=== PATIENT | female | born 1965 | race Caucasian/White ===

== ENCOUNTER → 2016-11-18 | Outpatient (CLI) | payer OTHER, BC ==
[~2016-11-18] MED LIST: BIOFTAB24; FEXO1TAB45 PO; LORA-741 PO; MEDR150I; NICO21DI12 TD; OMEG10007 PO; SIMV20TA2 PO; VENL75CA73 PO
--- NOTE | 2016-11-18 15:01 | DIAGNOSTIC IMAGING REPORT ---
LEFT ELBOW 3 VIEWS HISTORY: Fall with left elbow pain. COMPARISON: None. FINDINGS: There is no fracture or dislocation. Soft tissues are unremarkable. No radiopaque foreign bodies. No elbow effusion. 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 IMPRESSION: No fractures. Electronically signed by: Derik Guzman M.D. 11/18/2016 3:00 PM Dictated Date/Time: 11/18/2016 2:59 PM
== END | disposition home or self-care (01) ==
LOC: C.RAD1850 14:37
PROVIDERS: ATTEND Nurse Practitioner Adult Health
DX: M25.522 Pain in left elbow (principal); W19.XXXA Unspecified fall, initial encounter

== ENCOUNTER → 2016-12-15 | Outpatient (CLI) | payer BC | END | disposition home or self-care (01) | LOC: C.LABSPEC 12:57 | PROVIDERS: ATTEND Internal Medicine | DX: Z12.11 Encounter for screening for malignant neoplasm of colon (principal) ==

== ENCOUNTER → 2017-05-06 | Outpatient (CLI) | payer BC | END | disposition home or self-care (01) | LOC: C.PAPS 14:30 | PROVIDERS: ATTEND Internal Medicine | DX: Z01.419 Encounter for gynecological examination (general) (routine) without abnormal findings (principal) ==

== ENCOUNTER → 2017-05-06 | Outpatient (CLI) | payer BC ==
[2017-05-06 15:04] LABS: BASO % 0.5 %; BASO ABS # 0.03 K/uL (0-0.2); COMPLETE YES; EOS % 1.7 %; HEMATOCRIT 42.5 % (37-47); IG% 0.2 %; LYMPH % 32.2 %; LYMPH ABS # 2.03 K/uL (1.2-3.4); MEAN CELL VOLUME 91.6 fL (80-100); MEAN CORPUSCULAR HEMOGLOBIN 31.3 pg (25-34); MEAN CORPUSCULAR HGB CONC 34.1 g/dl (32-36); MEAN PLATELET VOLUME 9.5 fL (7.4-10.4); MONO % 7.4 %; PLATELET COUNT 273 K/uL (130-400); RED BLOOD COUNT 4.64 M/uL (4.2-5.4); WHITE BLOOD COUNT 6.31 K/uL (4.8-10.8)
[2017-05-06 15:20] LABS: ALT/SGPT 26 U/L (12-78); BLOOD UREA NITROGEN 17 mg/dl (7-18); BUN/CREATININE RATIO 23.4 (10-20); CALCIUM 9.4 mg/dl (8.5-10.1); CARBON DIOXIDE 26 mmol/L (21-32); CHLORIDE 102 mmol/L (98-107); CHOLESTEROL 233 mg/dl (0-200); CREATININE 0.71 mg/dl (0.60-1.20); GLUCOSE 93 mg/dl (70-99); POTASSIUM 3.7 mmol/L (3.5-5.1); SODIUM 136 mmol/L (136-145); TRIGLYCERIDES 90 mg/dl (0-150); VERY LOW DENSITY LIPOPROT CALC 18 mg/dl
[2017-05-06 15:25] LABS: ALB/GLOB RATIO 1.2 (0.9-2); ALKALINE PHOSPHATASE 70 U/L (45-117); AST/SGOT 15 U/L (15-37); CHOLESTEROL/HDL RATIO 4.9; HDL CHOLESTEROL 48 mg/dl; RHEUMATOID FACTOR < 10.0 U/mL (0-15)
[2017-05-06 16:48] LABS: LYME DISEASE AB IGM NEG (NEG)
[2017-05-06 16:51] LABS: LYME DISEASE AB IGG NEG (NEG)
[2017-05-07 05:43] LABS: ESTIMATED AVERAGE GLUCOSE 120 mg/dl; HA1C FLAG Normal (Normal)
[2017-05-11 08:33] LABS: ANA TITER 1:40 TITER (<1:40)
== END | disposition home or self-care (01) ==
LOC: C.LABSPEC 14:22
PROVIDERS: ATTEND Internal Medicine
DX: R73.9 Hyperglycemia, unspecified (principal); E78.5 Hyperlipidemia, unspecified; M25.50 Pain in unspecified joint

== ENCOUNTER → 2017-05-13 | Outpatient (CLI) | payer BC ==
[2017-05-16 15:28] LABS: ANTI-SS-A <1.0 NEG AI (<1.0 NEG); ANTI-SS-B <1.0 NEG AI (<1.0 NEG); Sm Antibody <1.0 NEG AI (<1.0 NEG)
== END | disposition home or self-care (01) ==
LOC: C.PAPS 16:51
PROVIDERS: ATTEND Internal Medicine
DX: M25.50 Pain in unspecified joint (principal)

== ENCOUNTER → 2017-05-17 | Outpatient (CLI) | payer BC ==
--- NOTE | 2017-05-18 07:39 | MAMMOGRAPHY REPORT ---
BILATERAL DIGITAL SCREENING MAMMOGRAM TOMOSYNTHESIS WITH CAD: 05/17/2017 CLINICAL HISTORY: Routine screening. Patient has no complaints. TECHNIQUE: Breast tomosynthesis in addition to standard 2D mammography was performed. Current study was also evaluated with a Computer Aided Detection (CAD) system. COMPARISON: Comparison is made to exams dated: 05/12/2016 mammogram, 05/12/2015 mammogram, 09/14/2013 isaac mogram, 09/13/2012 mammogram, 09/10/2011 mammogram, and 09/04/2010 mammogram - [facility] nter. BREAST COMPOSITION: There are scattered areas of fibroglandular density in both breasts. FINDINGS: A small 4 mm lobulated mass in the lower inner quadrant of the left breast has decreased in size compared to more remote mammograms, confirming benignity. No suspicious mass, architectural di stortion or cluster of microcalcifications is seen. IMPRESSION: ACR BI-RADS CATEGORY 1: NEGATIVE There is no mammographic evidence of malignancy. A 1 year screening mammogram is recommended. The pa tient will receive written notification of the results. Approximately 10% of breast cancers are not detected with mammography. A negative mammographic report should not delay biopsy if a clinically suggestive mass is present. Mayuri Garcia M.D. ay/:05/17/2017 16:41:05 [employer]: Jen CARTER)(M), [facility] letter sent: Normal 1/2 BI-RADS Code: ACR BI-RADS Category 1: Negative
== END | disposition home or self-care (01) ==
LOC: C.MAMM 16:07
PROVIDERS: ATTEND Internal Medicine
DX: Z12.31 Encounter for screening mammogram for malignant neoplasm of breast (principal)

== ENCOUNTER → 2017-07-09 | Outpatient (CLI) | payer BC | END | disposition home or self-care (01) | LOC: C.LABSPEC 12:59 | PROVIDERS: ATTEND Internal Medicine | DX: Z12.11 Encounter for screening for malignant neoplasm of colon (principal) ==

== ENCOUNTER → 2017-12-16 | Outpatient (CLI) | payer OTHER ==
[2017-12-16 18:11] LABS: BASO % 0.4 %; BASO ABS # 0.03 K/uL (0-0.2); EOS % 1.3 %; IG# 0.02 K/uL (0.00-0.02); LYMPH % 27.4 %; LYMPH ABS # 2.06 K/uL (1.2-3.4); MEAN CELL VOLUME 91.7 fL (80-100); MEAN CORPUSCULAR HEMOGLOBIN 32.1 pg (25-34); MEAN PLATELET VOLUME 9.4 fL (7.4-10.4); MONO ABS # 0.68 K/uL (0.11-0.59); NEUT % 61.6 %; NEUT ABS # 4.64 K/uL (1.4-6.5); PLATELET COUNT 266 K/uL (130-400); RED CELL DISTRIBUTION WIDTH CV 14.1 % (11.5-14.5); RED CELL DISTRIBUTION WIDTH SD 47.8 fL (36.4-46.3); WHITE BLOOD COUNT 7.53 K/uL (4.8-10.8)
[2017-12-16 18:37] LABS: ALBUMIN 3.9 gm/dl (3.4-5.0); ALKALINE PHOSPHATASE 189 U/L (45-117); ALT/SGPT 19 U/L (12-78); AST/SGOT 21 U/L (15-37); BLOOD UREA NITROGEN 37 mg/dl (7-18); CALCIUM 9.4 mg/dl (8.5-10.1); CARBON DIOXIDE 41 mmol/L (21-32); CREATININE 1.29 mg/dl (0.60-1.20); GLUCOSE 105 mg/dl (70-99); SODIUM 140 mmol/L (136-145); TOTAL PROTEIN 7.7 gm/dl (6.4-8.2)
[2017-12-17 07:01] LABS: HEMOGLOBIN A1C 5.9 % (4.5-5.6)
== END | disposition home or self-care (01) ==
LOC: C.LABSPEC 17:24
PROVIDERS: ATTEND Internal Medicine
DX: R73.9 Hyperglycemia, unspecified (principal); E78.5 Hyperlipidemia, unspecified; R53.83 Other fatigue; E66.09 Other obesity due to excess calories

== ENCOUNTER → 2018-02-20 | Outpatient (CLI) | payer OTHER ==
[~2018-02-20] MED LIST changes: +CALC-393 PO; +CLB/200 PO; +DIPH-437 PO; +EYED OPB; +FLUO20CA35 PO; +FLUT0.15; -MEDR150I; +MEDR150I INJ; +NICO1KIT EX; -NICO21DI12 TD; +PRLSR20 PO; +allergy injections INJ
== END | disposition home or self-care (01) ==
LOC: C.LABSPEC 17:42
PROVIDERS: ATTEND Internal Medicine
DX: N39.0 Urinary tract infection, site not specified (principal)

== ENCOUNTER 2018-03-07 11:43 | Inpatient (IN) | payer OTHER ==
[2018-02-16 14:50] VITALS: BMI 42.0
--- NOTE | 2018-02-16 15:29 | PAT Medication Instructions ---
Service Date Feb 16, 2018. Current Home Medication List Acetaminophen/Diphenhydramine (Tylenol Pm), 1 TAB PO HS Bioflavonoid Products (Vitamin C Plus 500 mg), BID Calcium Carbonate (Calcium), 1 TAB PO BID Celecoxib (CeleBREX), 200 MG PO QAM Eye Drops (Eye Drops), 1-2 DROPS OPB QD Fexofenadine Hcl (Adriane), 60 MG PO BID Fish Oil ([place]-3), 1 CAP PO BID Fluoxetine (Prozac), 20 MG PO QAM Fluticasone Propionate (Nasal) (Flonase Allergy Relief), 2 SPRAYS NA QD PRN for Nasal Congestion Lorazepam (Ativan), 0.5 MG PO Q6H PRN for Anxiety/Agitation Medroxyprogesterone Acetate (C (Depo-Provera Contraceptiv), 1 DOSE INJ Q3MO Nicotine (Nicotine Transdermal Syst), 1 PATCH EX Q24H Omeprazole (Prilosec), 20 MG PO QPM Simvastatin (Zocor), 1 TAB PO QPM Venlafaxine Hcl (Venlafaxine Extended Rel), 1 CAP PO DAILY [allergy injections], 1 DOSE INJ [id number] Medication Instructions For Your Scheduled Surgery -Continue as directed: Medroxyprogesterone Acetate (C (Depo-Provera Contraceptiv), 1 DOSE INJ Q3MO [allergy injections], 1 DOSE INJ [id number] Nicotine (Nicotine Transdermal Syst), 1 PATCH EX Q24H - Hold the following medications 2 weeks prior to surgery: Fish Oil ([place]-3), 1 CAP PO BID - Hold the following medications 7 days prior to surgery per your surgeon's instructions: Celecoxib (CeleBREX), 200 MG PO QAM - Hold the following medications the morning of surgery: Bioflavonoid Products (Vitamin C Plus 500 mg), BID Calcium Carbonate (Calcium), 1 TAB PO BID Fexofenadine Hcl (Adriane), 60 MG PO BID - Take the following medications the morning of surgery with a sip of water: Eye Drops (Eye Drops), 1-2 DROPS OPB QD Fluoxetine (Prozac), 20 MG PO QAM Fluticasone Propionate (Nasal) (Flonase Allergy Relief), 2 SPRAYS NA QD PRN for Nasal Congestion (if needed) Lorazepam (Ativan), 0.5 MG PO Q6H PRN for Anxiety/Agitation (if needed) Venlafaxine Hcl (Venlafaxine Extended Rel), 1 CAP PO DAILY - Take the following medications as scheduled the night before surgery: Acetaminophen/Diphenhydramine (Tylenol Pm), 1 TAB PO HS Bioflavonoid Products (Vitamin C Plus 500 mg), BID Calcium Carbonate (Calcium), 1 TAB PO BID Eye Drops (Eye Drops), 1-2 DROPS OPB QD Fexofenadine Hcl (Adriane), 60 MG PO BID Fluticasone Propionate (Nasal) (Flonase Allergy Relief), 2 SPRAYS NA QD PRN for Nasal Congestion (if needed) Lorazepam (Ativan), 0.5 MG PO Q6H PRN for Anxiety/Agitation (if needed) Omeprazole (Prilosec), 20 MG PO QPM Simvastatin (Zocor), 1 TAB PO QPM If you have any questions please call us at [phone] or [phone] or [phone]
--- NOTE | 2018-02-16 16:14 | DIAGNOSTIC IMAGING REPORT ---
CHEST 2 VIEWS ROUTINE CLINICAL HISTORY: Preoperative evaluation. COMPARISON STUDY: Chest radiograph April 24, 2017. FINDINGS: Lung volumes are normal. No pneumothorax or pleural effusion is noted. There are several old right rib fractures. Pulmonary vascularity is normal. Cardiac size is normal. Mediastinal contours are normal. IMPRESSION: No acute cardiopulmonary findings. Electronically signed by: Tigre Rogers M.D. 02/16/2018 4:13 PM Dictated Date/Time: 02/16/2018 4:13 PM
[2018-02-16 16:17] LABS: BASO % 0.3 %; BASO ABS # 0.02 K/uL (0-0.2); EOS % 1.8 %; EOS ABS # 0.13 K/uL (0-0.5); HEMATOCRIT 41.5 % (37-47); HEMOGLOBIN 14.5 g/dL (12.0-16.0); IG# 0.01 K/uL (0.00-0.02); LYMPH % 31.3 %; LYMPH ABS # 2.21 K/uL (1.2-3.4); MEAN CELL VOLUME 89.4 fL (80-100); MEAN CORPUSCULAR HEMOGLOBIN 31.3 pg (25-34); MEAN CORPUSCULAR HGB CONC 34.9 g/dl (32-36); MEAN PLATELET VOLUME 8.9 fL (7.4-10.4); MONO % 7.4 %; MONO ABS # 0.52 K/uL (0.11-0.59); NEUT % 59.1 %; NEUT ABS # 4.18 K/uL (1.4-6.5); PLATELET COUNT 255 K/uL (130-400); RED CELL DISTRIBUTION WIDTH CV 13.9 % (11.5-14.5); RED CELL DISTRIBUTION WIDTH SD 45.2 fL (36.4-46.3); WHITE BLOOD COUNT 7.07 K/uL (4.8-10.8)
[2018-02-16 16:52] LABS: CALCIUM 8.9 mg/dl (8.5-10.1); CREATININE 0.74 mg/dl (0.60-1.20); POTASSIUM 4.1 mmol/L (3.5-5.1)
[~2018-03-07] VITALS: Ht 162.6 cm; Wt 115.0 kg
[2018-03-07] VITALS (8 sets, daily range): BP systolic 118–155; BP diastolic 75–107; PULSE 69–94; TEMP 35.9–37; O2SAT 94–100; Ht 162.6 cm; Wt 115.0 kg
[~2018-03-07 11:43] MED LIST changes: +ACETAMINOPHEN 500 MG TAB PO SCH; +CEFAZOLIN 2000MG IV PUSH 15 ML IV SCH; +CeleBREX 200 MG CAP PO SCH; +GABAPENTIN 900 MG PO SCH; +LACTATED RINGER'S 1000ML 1,000 ML IV SCH
[2018-03-07] MEDS ORDERED: NICO14DI31 TD (12:56)
--- NOTE | 2018-03-07 14:06 | History & Physical Bridge Note ---
H&P Re-Evaluation Bridge Note: I have examined the patient, reviewed the History & Physical and in the interval since the performance of the History & Physical I have noted the following changes of clinical significance: No changes noted
--- NOTE | 2018-03-07 14:09 | History and Physical ---
History & Physical Date March 07, 2018. Chief Complaint Back and leg pain History of Present Illness The patient is a 52 year old female with complaints of back and leg pain Additional History Hepatic Disease: No Endocrine Disorder: No Kidney Disease: No Hypertension: No Heart Disease: No Bleeding Tendencies: No Infectious Diseases: No Allergies Coded Allergies: Dust Mite Extract (Verified Allergy, Intermediate, dust & dirt = coughing and sneezing, 03/07/18) No Known Drug Allergy (Unverified Allergy, Unknown, ,, 03/07/18) . Home Medications Scheduled Acetaminophen/Diphenhydramine (Tylenol Pm), 1 TAB PO HS Bioflavonoid Products (Vitamin C Plus 500 mg), BID Calcium Carbonate (Calcium), 1 TAB PO BID Celecoxib (CeleBREX), 200 MG PO QAM Eye Drops (Eye Drops), 1-2 DROPS OPB QD Fluoxetine (Prozac), 20 MG PO QAM Medroxyprogesterone Acetate (C (Depo-Provera Contraceptiv), 1 DOSE INJ Q3MO Nicotine (Nicotine Transdermal Syst), 1 PATCH EX Q24H Nicotine (Nicoderm Cq 14MG Patch), 1 PATCH TD DAILY Omeprazole (Prilosec), 20 MG PO QPM Simvastatin (Zocor), 1 TAB PO QPM [allergy injections], 1 DOSE INJ [id number] Scheduled PRN Fluticasone Propionate (Nasal) (Flonase Allergy Relief), 2 SPRAYS NA QD PRN for Nasal Congestion Physical Examination Skin: warm/dry, no rash Eyes: normal inspection, EOMI, sclerae normal ENT: normal ENT inspection, pharynx normal Head: normocephalic, atraumatic Neck: supple, no adenopathy, trachea midline Respiratory/Chest: lungs clear, normal breath sounds, no respiratory distress Cardiovascular: regular rate, rhythm, no edema, no murmur Abdomen / GI: normal bowel sounds, non tender Back: normal inspection Extremities: normal inspection, normal range of motion Neurologic/Psych: no motor/sensory deficits, alert, normal reflexes, oriented x 3 Diagnosis Lumbar spinal stenosis with spondylolisthesis and neurogenic claudication Plan of Treatment TLIF L4-5
[2018-03-07] MEDS ORDERED: BUPIVACAINE/EPINEPHRINE 0.5% MPF 1:200,000 30 ML VIAL ONE (14:25)
[2018-03-07] MEDS ORDERED: BACITRACIN 50000 UNIT VIAL ONE (14:25)
[2018-03-07] MEDS ORDERED: HYDROmorphone INJ 2 MG/ML SYR/VIAL ONE (14:29)
[2018-03-07] MEDS ORDERED: FENTANYL CITRATE INJ 50 MCG/1 ML 2 ML VIAL ONE (14:29)
[2018-03-07] MEDS ORDERED: MIDAZOLAM HCL 1 MG/ML 2ML VIAL ONE (14:29)
[2018-03-07] MEDS ORDERED: FLUMAZENIL 0.1 MG/1 ML 10 ML VIAL IV PRN (15:15)
[2018-03-07] MEDS ORDERED: ATROPINE SULFATE 0.1 MG/ML 5ML SYR IV PRN (15:15)
[2018-03-07] MEDS ORDERED: LABETALOL HCL IV 5 MG/ML 20ML IV PRN (15:15)
[2018-03-07] MEDS ORDERED: PROMETHAZINE HCL INJ 12.5 MG in SODIUM CHLORIDE 0.9% 50ML 50 ML IV PRN ×2 (15:15→16:45)
[2018-03-07] MEDS ORDERED: HYDROmorphone INJ 1 MG/ML SYR IV PRN (15:15)
[2018-03-07] MEDS ORDERED: ONDANSETRON INJ 2 MG/ML 2 ML VIAL IV PRN ×2 (15:15→16:45)
[2018-03-07] MEDS ORDERED: EpHEDrine SULFATE INJ 50 MG/ML AMP IV PRN (15:15)
[2018-03-07] MEDS ORDERED: NALOXONE HCL 0.4 MG/1 ML VIAL/CARP IV PRN ×3 (15:15→16:45)
[2018-03-07] MEDS ORDERED: LARYING-O-JET KIT (LTA) ONE (15:20)
[2018-03-07] MEDS ORDERED: ONDANSETRON INJ 2 MG/ML 2 ML VIAL ONE (15:20)
[2018-03-07] MEDS ORDERED: PROPOFOL IV EMULSION 10 MG/ML 20 ML VIAL ONE (15:20)
[2018-03-07] MEDS ORDERED: GLYCOPYRROLATE INJ 0.2 MG/ML VIAL ONE (15:20)
[2018-03-07] MEDS ORDERED: EpHEDrine SULFATE 50MG/5ML SYR ONE (15:20)
[2018-03-07] MEDS ORDERED: NEOSTIGMINE METHYLSULFATE 1 MG/ML 10ML VIAL ONE (15:20)
[2018-03-07] MEDS ORDERED: DEXAMETHASONE SOD INJ 4 MG/ML VIAL ONE (15:20)
[2018-03-07] MEDS ORDERED: LIDOCAINE HCL 2% 2 ML VIAL (20MG/ML) ONE (15:20)
[2018-03-07] MEDS ORDERED: ROCURONIUM BROMIDE 10 MG/ML 5 ML VIAL ONE (15:20)
[2018-03-07] MEDS ORDERED: PHENYLEPHRINE 100MCG/ML 5ML SYR ONE (15:20)
[2018-03-07] MEDS ORDERED: FLOSEAL HEMOSTATIC MATRIX 10ML TOP ONE (16:22)
[2018-03-07] MEDS ORDERED: SODIUM CHLORIDE 0.9% 1000ML 1,000 ML IV SCH (16:31)
--- NOTE | 2018-03-07 16:31 | [facility] Operative Report ---
Operative Report Operative Date March 07, 2018. Pre-Operative Diagnosis Lumbar spinal stenosis with spondylolisthesis and neurogenic claudication Post-Operative Diagnosis Lumbar spinal stenosis with spondylolisthesis and neurogenic claudication Procedure(s) Performed 1. Lumbar decompression medial facetectomies foraminotomies L3-4 L4-5. #2 posterior spinal fusion L4-5. #3 placement posterior instrumentation L4-5. #4 interbody fusion L4-5. #5 placement of titanium 12 x 22 mm cage at L4-5. #6 placement of locally harvested morselized autograft in the posterior lateral gutters. #7 placement InFUSE collagen sponge combined with master graft in the posterior lateral gutters and ostial amp in the interbody space. Surgeon Dr. Candelario Gonzalez Viscera Washer Surgeon(s) Janet Treviño PA-C Estimated Blood Loss 180ml Findings Severe spinal stenosis with facet cyst and spondylolisthesis Specimens None per surgeon Anesthesia Type General Description of Procedure Patient was met with preoperatively case discussed all questions addressed. After informed consent obtained patient was taken to the operative suite underwent intubation and placed in the prone position on the Mariano table on top of the Amor frame. All bony prominences well-padded eyes inspected to ensure no external pressure placed upon them. This point the lumbar spine was prepped and draped in the normal sterile fashion. Sharp dissection with the assistance of Bovie cautery was performed down to and exposing the lamina and transverse processes of L4-5 bilaterally. Severe facet hypertrophy and facet cyst were noted. Then performed a complete laminectomy of L4 appreciating marked instability. A partial laminectomy of L3 is performed. I then performed bilateral medial facetectomy foraminotomies addressing significant stenosis. Pedicle screws were then placed in L 4 L5 bilaterally with the assistance of fluoroscopy and process kevyn placed through a transforaminal approach on the left complete discectomy of L4-5 was performed endplates created to subcortical bleeding bone and a 12 x 22 mm titanium cage filled with ostium bone graft tapped in position. Rods were then compressed locked into final position bilaterally. The transverse processes of L4 and L5 then burred to subcortical bleeding bone. Infuse collagen sponge mass graft and local autograft placed in the posterior gutters. A 15 round LANCE drain inserted. Incision was then closed with 1 Vicryl fascia 2-0 Vicryl substantially and 4-0 Monocryl for fashion closure Steri-Strips sterile dressings placed. Patient weakened taken to PACU in a stable condition. His note Janet Ugalde present throughout the entire procedure involved in patient positioning complex portions of the surgery and final skin closure. I attest to the content of the Intraoperative Record and any orders documented therein. Any exceptions are noted below.
--- NOTE | 2018-03-07 16:37 | DIAGNOSTIC IMAGING REPORT ---
LUMBAR SPINE 2 OR 3 VIEW CLINICAL HISTORY: L4-L5 PSF TECHNIQUE: Image intensifier COMPARISON STUDY: None FINDINGS: Findings consistent with posterior laminectomy and fusion at L4-L5. Alignment is anatomic. Disc spacer is present. IMPRESSION: L4-L5 laminectomy and fusion. The above report was generated using voice recognition software. It may contain grammatical, syntax or spelling errors. Electronically signed by: Cesar Lr M.D. 03/07/2018 4:36 PM Dictated Date/Time: 03/07/2018 4:35 PM
[2018-03-07] MEDS ORDERED: MAGNESIUM HYDROXIDE SUSP 30 ML UDC PO PRN (16:45)
[2018-03-07] MEDS ORDERED: ALUMINUM/MAGNESIUM SUSP 30 ML UDC PO PRN (16:45)
[2018-03-07] MEDS ORDERED: ACETAMINOPHEN 500 MG TAB PO PRN (16:45)
[2018-03-07] MEDS ORDERED: DO NOT ADMINISTER FLU VACCINE PRN (16:45)
[2018-03-07] MEDS ORDERED: LORAZEPAM INJ 0.5 MG in SYRINGE 0 ML IV PRN (16:45)
[2018-03-07] MEDS ORDERED: ACETAMINOPHEN IV 100 ML IV PRN (16:45)
[2018-03-07] MEDS ORDERED: DO NOT ADMINISTER PNEUMOCOCCAL VACCINE PRN (16:45)
[2018-03-07] MEDS ORDERED: FLUTICASONE PROPIONATE NA SPR 16 GM BTL PRN (16:45)
[2018-03-07] MEDS ORDERED: FAMOTIDINE 20 MG TAB PO PRN (16:45)
[2018-03-07] MEDS ORDERED: hydrOXYzine HCL 25 MG TAB PO PRN (16:45)
[2018-03-07] MEDS ORDERED: SOD PHOSPHATE/SOD BIPHOSPHATE ENEMA 132 ML BTL PR PRN (16:45)
[2018-03-07] MEDS ORDERED: METOCLOPRAMIDE HCL INJ 5 MG/ML 2 ML VIAL IV PRN (16:45)
[2018-03-07] MEDS ORDERED: BISACODYL 10 MG SUPP PR PRN (16:45)
[2018-03-07] MEDS: HYDROmorphone HCL 0.5MG/ML 50 ML CASSETTE IV PRN ×3 (16:56→23:00)
--- NOTE | 2018-03-07 17:41 | Anesthesiology Progress Note ---
Anesthesia Post Op Note Date & Time March 07, 2018 at 17:41 Vital Signs Pain Intensity: 0 Vital Signs Past 12 Hours Date Time Temp Pulse Resp B/P (MAP) Pulse Ox O2 Delivery O2 Flow Rate FiO2 03/07/18 17:20 36.6 68 15 128/71 98 Nasal Cannula 4 03/07/18 17:10 73 11 141/73 100 Nasal Cannula 4 03/07/18 17:00 74 13 142/75 100 Oxymask 10 03/07/18 16:50 83 15 137/77 96 Oxymask 10 03/07/18 16:44 36.6 94 20 161/95 96 Oxymask 10 03/07/18 12:10 37 82 20 153/107 94 Room Air 130/76 Notes Mental Status: alert / awake / arousable, participated in evaluation Pt Amnestic to Procedure: Yes Nausea / Vomiting: adequately controlled Pain: adequately controlled Airway Patency, RR, SpO2: stable & adequate BP & HR: stable & adequate Hydration State: stable & adequate Anesthetic Complications: no major complications apparent
[2018-03-07] MEDS: SODIUM CHLORIDE 0.9% 1000ML 1,000 ML IV SCH (18:38)
[2018-03-07] MEDS: DOCUSATE SODIUM/SENNA 50/8.6MG TAB PO SCH (20:48)
[2018-03-07] MEDS: SIMVASTATIN 20 MG TAB PO SCH (20:48)
[2018-03-07] MEDS: CEFAZOLIN IV 2,000 MG in SYRINGE 0 ML IV SCH (20:48)
[2018-03-07] MEDS ORDERED: COUGH DROP (SUGAR FREE) LOZ 24 LOZ/1 BOX LOZ ONE (21:20)
[2018-03-07] MEDS ORDERED: NURSING DECISION MEDICATION ORDER SCH (21:30)
[2018-03-07] MEDS ORDERED: COUGH DROP (SUGAR FREE) LOZ 24 LOZ/1 BOX LOZ PRN (21:30)
[2018-03-07] MEDS: LORAZEPAM 0.5 MG TAB PO PRN (21:59)
[2018-03-08] VITALS (9 sets, daily range): BP systolic 110–130; BP diastolic 68–80; PULSE 64–83; TEMP 36.4–37.2; O2SAT 91–99
[2018-03-08] MEDS: SODIUM CHLORIDE 0.9% 1000ML 1,000 ML IV SCH ×3 (01:15→10:54)
[2018-03-08] MEDS: CEFAZOLIN IV 2,000 MG in SYRINGE 0 ML IV SCH (04:24)
[2018-03-08] MEDS ORDERED: DC PCA SCH (06:00)
[2018-03-08] MEDS ORDERED: HYDROmorphone INJ 0.5 MG/0.5 ML SYR IV PRN (06:00)
[2018-03-08 06:48] LABS: EOS % 0.1 %; EOS ABS # 0.01 K/uL (0-0.5); HEMATOCRIT 35.6 % (37-47); HEMOGLOBIN 12.1 g/dL (12.0-16.0); IG# 0.02 K/uL (0.00-0.02); LYMPH % 13.1 %; LYMPH ABS # 1.23 K/uL (1.2-3.4); MEAN CELL VOLUME 89.4 fL (80-100); MEAN CORPUSCULAR HEMOGLOBIN 30.4 pg (25-34); MONO % 6.3 %; MONO ABS # 0.59 K/uL (0.11-0.59); NEUT % 80.3 %; NEUT ABS # 7.53 K/uL (1.4-6.5); PLATELET COUNT 228 K/uL (130-400); RED CELL DISTRIBUTION WIDTH CV 14.2 % (11.5-14.5); RED CELL DISTRIBUTION WIDTH SD 46.5 fL (36.4-46.3); WHITE BLOOD COUNT 9.38 K/uL (4.8-10.8)
[2018-03-08 07:23] LABS: CREATININE 0.64 mg/dl (0.60-1.20); POTASSIUM 3.5 mmol/L (3.5-5.1)
[2018-03-08] MEDS: OXYCODONE HCL IR 5 MG TAB (IMMEDIATE RELEASE) PO PRN ×4 (07:35→20:58)
[2018-03-08] MEDS ORDERED: RXC5 PO (07:38)
--- NOTE | 2018-03-08 07:39 | Discharge Instructions ---
Discharge Instructions Date of Service March 08, 2018. Admission Reason for Admission: Lumbar Spinal Stenosis Discharge Discharge Diagnosis / Problem: lumbar stenosis Discharge Goals Goal(s): Improve function Activity Recommendations Activity Limitations: per Instructions/Follow-up section . Instructions / Follow-Up Instructions / Follow-Up ACTIVITY RECOMMENDATIONS: SELF CARE INSTRUCTIONS AFTER THORACIC/LUMBAR FUSIONS 1. You may walk to your tolerance. It is good exercise for your legs and back. Expect some back and intermittent leg aches and pains. 2. You may perform "counter-top" level activities (make a sandwich, gaudencio with a project, etc.). 3. No bending or lifting of more than 10 pounds or back twisting of any nature (roll like a log when turning in bed). 4. You may ride in a car for 20-30 minutes at a time. No driving until after your first visit with your doctor. 5. Frequent changes of position and restricting sitting to 30 minutes at a time will help limit the amount of back spasms and stiffness you may experience. 6. You may discontinue the use of ambulatory aids (cane, crutches, etc.) once your strength and confidence allow. 7. You may chest painting and sealing supervisor the shower and let water strike your incision when you arrive home at least once daily. Do not take a tub bath, sit in a hot tub or go into a swimming pool until after your first recheck in the office. SPECIAL CARE INSTRUCTIONS: VERY IMPORTANT TO READ AND REVIEW A. Your surgical incision has been closed with a cosmetic suture under the skin that will dissolve in about 6 weeks. In 14 days, you can use a pair of clean scissors and cut the suture that is left outside of the skin at the ends of your incision. 1. The small skin tapes can be removed 7 days after surgery if they have not fallen off by that point. 2. You may keep the wound open to air as much as possible to promote healing after post-op day number 5 unless told otherwise by your doctor. 3. If you think the wound looks like it is becoming infected (redness or worsening drainage) and/or you are experiencing fever, chill or worsening back pain and muscle spasms, contact the office so that we may evaluate you as soon as possible. B. Complications are uncommon, but please contact us if you have any signs or symptoms of: 1. wound infection (fever higher than 102.5 degrees F, redness, separation of wound, drainage, or increasing pain from the incision) 2. blood clots in legs (pain, swelling, redness and warmth in legs) 3. urinary tract infection (fever higher than 102.5 degrees F, burning upon urination or increased frequency of urination) 4. nerve problems (inability to walk on your toes or heels, numbness, loss of bowel or bladder control) 5. any other symptoms that concern you C. Please call the office at if you have any concerns or questions about your operation or recovery. D. No smoking! Smoking drastically decreases the chance of a solid fusion. E. Do not take any anti-inflammatory medications (Indocin, Advil, Motrin, Aspirin, Naprosyn, etc.) as these may inhibit the chance of a solid fusion. Tylenol is okay to take for pain. MANAGING PAIN AFTER SPINAL SURGERY 1. Narcotic medication is intended for short-term use and will be provided for surgical pain. Surgical pain usually lasts for a period of 4-6 weeks. Narcotic medication includes Percocet, Vicodin, Darvocet, Tylenol #3 or Lortab. 2. Longer-term pain is more appropriately treated with non-narcotic medication such as Tylenol ES. 3. Muscle spasm is not appropriately treated with narcotics. Muscle relaxers such as Soma, Flexeril or Skelaxin can be used along with Tylenol ES. 4. Remember that we all live with some "aches and pains". This is not unusual or uncommon after an injury or as we get older. a. Back pain is expected and may include muscle spasms for 4 to 6 weeks after surgery. The pain should gradually improve. If the pain worsens for no apparent reason, please contact the office. b. Intermittent leg pain may also be experienced and should not be concerned about unless it worsens for no apparent reason. If so, please contact the office. 5. We will provide appropriate medication within the normal guidelines of their prescribed use. We will also be very cautious and aware of potential abuse and extended duration of patients' medication needs. a. Pain medications are for your comfort and to assist with sleep and rest so that the tissue can heal. They are not provided in order to return to normal activity and should not be used through the day. To do so or worsening pain at night can result from ongoing tissue damage and development of tolerance to the prescribed medicine. 6. Please allow 2-3 days to process refills. Prescriptions will not be mailed but must be picked up at the office. FOLLOW UP VISIT: Keep your scheduled follow-up appointment. Any questions, please call the office at . Current Hospital Diet Patient's current hospital diet: Regular Diet Discharge Diet Recommended Diet: Regular Diet Procedures Procedures Performed: 1. Lumbar decompression medial facetectomies foraminotomies L3-4 L4-5. #2 posterior spinal fusion L4-5. #3 placement posterior instrumentation L4-5. #4 interbody fusion L4-5. #5 placement of titanium 12 x 22 mm cage at L4-5. #6 placement of locally harvested morselized autograft in the posterior lateral gutters. #7 placement InFUSE collagen sponge combined with master graft in the posterior lateral gutters and ostial amp in the interbody space. Pending Studies Studies pending at discharge: no Laboratory Results Hemoglobin A1c Test 12/16/17 15:00 Range/Units Estimated Average Glucose 123 mg/dl Hemoglobin A1c 5.9 H 4.5-5.6 % Medical Emergencies . Who to Call and When: Medical Emergencies: If at any time you feel your situation is an emergency, please call 911 immediately. . Non-Emergent Contact Non-Emergency issues call your: Primary Care Provider . "Provider Documentation" section prepared by Candelario Gonzalez. .
[2018-03-08] MEDS: FLUOXETINE HCL 20 MG CAP PO SCH (08:47)
[2018-03-08] MEDS: PANTOprazole SOD 40 MG TAB PO SCH (08:48)
[2018-03-08] MEDS: NICOTINE 14 MG/24 HR TDSY TD SCH (08:48)
[2018-03-08] MEDS ORDERED: NURSING VERBAL MED ORDER ONE (11:00)
--- NOTE | 2018-03-08 12:21 | Progress Note ---
Progress Note Date of Service March 08, 2018. Progress Note Patient's back pain is controlled. Leg symptoms are markedly improved. Vital signs stable. On exam she is comfortable and has reasonable strength testing. Assessment status post lumbar depression fusion per plan at this time will continue physical therapy advance her bowel regiment anticipate discharge Tuesday. We are hoping for [facility] placement.
[2018-03-08] MEDS: KETOROLAC TROMETHAMINE 30 MG/ML VIAL IV PRN (16:22)
[2018-03-08] MEDS: DOCUSATE SODIUM/SENNA 50/8.6MG TAB PO SCH (20:57)
[2018-03-08] MEDS: SIMVASTATIN 20 MG TAB PO SCH (20:57)
[2018-03-09] MEDS: KETOROLAC TROMETHAMINE 30 MG/ML VIAL IV PRN (00:06)
[2018-03-09] MEDS: OXYCODONE HCL IR 5 MG TAB (IMMEDIATE RELEASE) PO PRN ×3 (01:57→15:50)
[2018-03-09] MEDS: POLYETHYLENE (MIRALAX) 17 GM PACK PO SCH ×3 (06:14→12:37)
[2018-03-09 07:40] VITALS: BP 98/65; PULSE 79; TEMP 36.8; O2SAT 98
--- NOTE | 2018-03-09 08:14 | Orthopedic Progress Note ---
Orthopedic Progress Note Date of Service March 09, 2018. Subjective Post OP Day: 2 Reports: feeling well Additional Notes: Yennifer is postoperative day 2 lumbar decompression fusion. She is doing well. No radicular leg pain. Back pain is controlled. She is passing flatus but no bowel movement. LANCE drain output last shift was 40 cc. History and physical therapy ambulating over 300 feet. Objective calves soft nontender, N/V intact, dressing C/D/I, A&O x3 Date Time Temp Pulse Resp B/P (MAP) Pulse Ox O2 Delivery O2 Flow Rate FiO2 03/08/18 23:43 37.2 83 16 122/75 (91) 99 Room Air 03/08/18 23:40 98 Room Air 03/08/18 16:14 36.8 76 16 110/68 (82) 98 Room Air 03/08/18 15:30 Room Air 03/08/18 11:56 36.5 71 17 130/80 (97) 99 Room Air 03/08/18 11:01 97 Room Air 03/08/18 09:30 36.5 72 16 126/72 (90) 95 Room Air 03/08/18 08:21 36.4 64 17 120/70 (87) 95 Room Air Assessment & Plan Assessment: Postoperative day 2 lumbar decompression instrumented fusion Plan: Patient is making slow steady progress. She is today we will continue physical therapy. Maintain LANCE drain. Continue with aggressive bowel regimen. DVT prophylaxis in the form teds and SCDs. Anticipate discharge home with home health tomorrow Inhouse Planning Pain Management: Oxy IR DVT Prophylaxis: TEDs, SCDs Discharge Planning Discharge Planning: home with home health Pain Management: Oxy IR DVT Prophylaxis: FABIOs
[2018-03-09] MEDS: PANTOprazole SOD 40 MG TAB PO SCH (09:48)
[2018-03-09] MEDS: FLUOXETINE HCL 20 MG CAP PO SCH (09:48)
[2018-03-09] MEDS: NICOTINE 14 MG/24 HR TDSY TD SCH (09:49)
[2018-03-09 16:09] VITALS: BP 127/76; PULSE 83; TEMP 36.7; O2SAT 100
[2018-03-09] MEDS ORDERED: NURSING VERBAL MED ORDER ONE (17:30)
[2018-03-09] MEDS: DOCUSATE SODIUM/SENNA 50/8.6MG TAB PO SCH (20:51)
[2018-03-09] MEDS: SIMVASTATIN 20 MG TAB PO SCH (21:15)
[2018-03-09 23:16] VITALS: BP 112/74; PULSE 90; TEMP 37.3; O2SAT 95
[2018-03-10 07:15] VITALS: BP 115/72; PULSE 89; TEMP 36.7; O2SAT 98
[2018-03-10] MEDS: FLUOXETINE HCL 20 MG CAP PO SCH (08:30)
[2018-03-10] MEDS: NICOTINE 14 MG/24 HR TDSY TD SCH (08:31)
--- NOTE | 2018-03-10 09:13 | Orthopedic Progress Note ---
Orthopedic Progress Note Date of Service March 10, 2018. Subjective Post OP Day: 3 Additional Notes: Patient is here postop #3 status post lumbar decompression fusion at L4-5. She was nauseous all day yesterday and had explosive diarrhea as well. She believes the MiraLAX contributed to this. She is feeling better today the pain is relatively well controlled but still feels queasy. She is not having any pain going down her legs her back pain is relatively well controlled. She denies any other numbness, tingling, or paresthesias. Objective On exam she is seated bedside. She is in no apparent distress. Her LANCE drains in place is at 20 cc out this shift 20 cc on the last. Her abdomen soft nontender calves are supple nontender strength is 5 out of 5 detailed muscle testing. Dressings clean dry and intact. She is afebrile vital signs are stable. Date Time Temp Pulse Resp B/P (MAP) Pulse Ox O2 Delivery O2 Flow Rate FiO2 03/10/18 07:30 Room Air 03/10/18 07:15 36.7 89 16 115/72 (86) 98 Room Air 03/09/18 23:38 Room Air 03/09/18 23:16 37.3 90 16 112/74 (87) 95 Room Air 03/09/18 16:09 36.7 83 16 127/76 (93) 100 Room Air 03/09/18 15:37 Room Air Assessment & Plan Assessment: Postoperative day 3 lumbar decompression instrumented fusion, with 24 hours of nausea and diarrhea. Plan: At this time the patient is feeling somewhat better but still was not up to speed. Concerned that going home today may lead her to being readmitted due to dehydration or continued nausea. Will continue to keep an eye on her today in the hospital continue GI DVT prophylaxis and pain control measures. If her symptoms remain well controlled today we will consider discharge tomorrow. Discharge Planning Discharge Planning: home with home health Pain Management: Oxy IR DVT Prophylaxis: José Antonio
[2018-03-10] MEDS: PANTOprazole SOD 40 MG TAB PO SCH (09:18)
[2018-03-10] MEDS: OXYCODONE HCL IR 5 MG TAB (IMMEDIATE RELEASE) PO PRN ×2 (13:51→19:48)
[2018-03-10 15:20] VITALS: BP 119/77; PULSE 85; TEMP 37.1; O2SAT 97
[2018-03-10 16:00] VITALS: O2SAT 97
[2018-03-10] MEDS: SIMVASTATIN 20 MG TAB PO SCH (20:29)
[2018-03-10] MEDS: LORAZEPAM 0.5 MG TAB PO PRN (20:29)
[2018-03-10] MEDS: DOCUSATE SODIUM/SENNA 50/8.6MG TAB PO SCH (20:29)
[2018-03-10 23:13] VITALS: BP 122/74; PULSE 82; TEMP 37; O2SAT 97
[2018-03-11 06:59] VITALS: BP 105/69; PULSE 88; TEMP 37; O2SAT 97
[2018-03-11] MEDS ORDERED: ATV5 PO (08:03)
--- NOTE | 2018-03-11 08:47 | Orthopedic Progress Note ---
Orthopedic Progress Note Date of Service March 11, 2018. Subjective Post OP Day: 4 Reports: feeling well Additional Notes: Feels better today. Ready to go home. No radicular pain. +BM. Nausea resolved. Objective calves soft nontender, N/V intact, dressing C/D/I, A&O x3, toes mobile In restroom. No distress. Dressing C/D/I. Calves soft and nontender n/v intact b/l Date Time Temp Pulse Resp B/P (MAP) Pulse Ox O2 Delivery O2 Flow Rate FiO2 03/11/18 06:59 37.0 88 18 105/69 (81) 97 Room Air 03/10/18 23:31 Room Air 03/10/18 23:13 37.0 82 15 122/74 (90) 97 Room Air 03/10/18 16:00 97 Room Air 03/10/18 15:20 37.1 85 18 119/77 (91) 97 Room Air Assessment & Plan Assessment: Postoperative day 4lumbar decompression instrumented fusion, with 24 hours of nausea and diarrhea.RESOLVED Plan: Discharge home today Inhouse Planning Pain Management: Oxy IR DVT Prophylaxis: ELISABETH Chous Discharge Planning Discharge Planning: home with home health Pain Management: Oxy IR DVT Prophylaxis: José Antonio
--- NOTE | 2018-03-11 08:49 | Discharge Summary ---
Orthopedic Discharge Summary Admission Date/Reason March 07, 2018 at 14:00 Lumbar Spinal Stenosis. Discharge Date/Disposition March 11, 2018 Home with services Diagnosis Principal Diagnosis: lumbar spinal stenosis Procedure(s) Performed posterior lumbar decompression fusion L4-5 Consultations hospitalist Medication Reconciliation New Medications: Lorazepam (Lorazepam) 0.5 Mg Tab 0.5 MG PO Q8H PRN for Anxiety and/or Sedation, #20 TAB Oxycodone HCl (Oxycodone HCl) 5 Mg Tab 5-10 MG PO Q4H PRN for Moderate - severe pain for 30 Days, #60 TAB Continued Medications: Acetaminophen/Diphenhydramine (Tylenol Pm) 500 Mg/25 Mg Tab 1 TAB PO HS, TAB Bioflavonoid Products (Vitamin C Plus 500 mg) 1 Tab Tab BID Calcium Carbonate (Calcium) 600 Mg Tab 1 TAB PO BID Eye Drops (Eye Drops) Drp 1-2 DROPS OPB QD Fluoxetine (Prozac) 20 Mg Cap 20 MG PO QAM, CAP Fluticasone Propionate (Nasal) (Flonase Allergy Relief) 50 Mcg/Act Spr 2 SPRAYS NA QD PRN for Nasal Congestion Medroxyprogesterone Acetate (C (Depo-Provera Contraceptiv) 150 Mg/Ml Inj 1 DOSE INJ Q3MO Nicotine (Nicotine Transdermal Syst) 1 Kit Kit 1 PATCH EX Q24H Nicotine (Nicoderm Cq 14MG Patch) 14 Mg/24 Hr Dis 1 PATCH TD DAILY, PATCH Omeprazole (Prilosec) 20 Mg Capcr 20 MG PO QPM, CAP Simvastatin (Zocor) 20 Mg Tab 1 TAB PO QPM for 90 Days, TAB 1 Refill [allergy injections] () 1 DOSE INJ [id number] Discontinued Medications: Celecoxib (CeleBREX) 200 Mg Cap 200 MG PO QAM, CAP Admission Physical Exam As per Admitting History & Physical. Hospital Course pt has progressed with PT. Pain controlled. Discharged home on POD#4. otherwise , uneventful hospital course Discharge Instructions Please refer to the electronic Patient Visit Report (Discharge Instructions) for additional information.
[2018-03-11] MEDS: PANTOprazole SOD 40 MG TAB PO SCH (08:54)
[2018-03-11] MEDS: FLUOXETINE HCL 20 MG CAP PO SCH (08:54)
[2018-03-11] MEDS: OXYCODONE HCL IR 5 MG TAB (IMMEDIATE RELEASE) PO PRN (08:55)
[2018-03-11] MEDS: NICOTINE 14 MG/24 HR TDSY TD SCH (08:56)
[2018-03-11 10:36] VITALS: BP 105/69; PULSE 88; TEMP 37; O2SAT 97
[2018-03-11] MEDS: LORAZEPAM 0.5 MG TAB PO PRN (11:05)
== END 2018-03-11 12:16 | disposition home health service (06) | DRG 455 ==
LOC: C.ACU 11:43 → C.3E 14:00 → ENRESERV 17:07
PROVIDERS: ADMIT Orthopaedic Surgery Orthopaedic Surgery of the Spine; ATTEND Orthopaedic Surgery Orthopaedic Surgery of the Spine
PROC: 01NB0ZZ Release Lumbar Nerve, Open Approach (ICD-10-PCS; principal; 2018-03-07 14:15)
PROC: 0SG00AJ Fusion of Lumbar Vertebral Joint with Interbody Fusion Device, Posterior Approach, Anterior Column, Open Approach (ICD-10-PCS; principal; 2018-03-07 14:15)
PROC: 0SG0071 Fusion of Lumbar Vertebral Joint with Autologous Tissue Substitute, Posterior Approach, Posterior Column, Open Approach (ICD-10-PCS; principal; 2018-03-07 14:15)
DX: M48.062 Spinal stenosis, lumbar region with neurogenic claudication (principal); M43.16 Spondylolisthesis, lumbar region

== ENCOUNTER → 2018-06-05 | Outpatient (CLI) | payer OTHER ==
[~2018-06-05] MED LIST changes: -ACETAMINOPHEN 500 MG TAB PO SCH; +ATV5 PO; -CEFAZOLIN 2000MG IV PUSH 15 ML IV SCH; -CLB/200 PO; -CeleBREX 200 MG CAP PO SCH; -FEXO1TAB45 PO; -GABAPENTIN 900 MG PO SCH; -LACTATED RINGER'S 1000ML 1,000 ML IV SCH; -LORA-741 PO; +NICO14DI31 TD; -OMEG10007 PO; +RXC5 PO; -VENL75CA73 PO
== END | disposition home or self-care (01) ==
LOC: C.PAPS 11:06
PROVIDERS: ATTEND Internal Medicine
DX: Z12.4 Encounter for screening for malignant neoplasm of cervix (principal)

== ENCOUNTER → 2018-06-14 | Outpatient (CLI) | payer OTHER ==
[2018-06-19 18:13] LABS: FECAL OCCULT BLOOD #1 NEGATIVE (NEGATIVE); FECAL OCCULT BLOOD #2 NEGATIVE (NEGATIVE); FECAL OCCULT BLOOD #3 NEGATIVE (NEGATIVE)
== END | disposition home or self-care (01) ==
LOC: C.LABSPEC 17:15
PROVIDERS: ATTEND Internal Medicine
DX: Z12.11 Encounter for screening for malignant neoplasm of colon (principal)

== ENCOUNTER 2020-12-29 10:23 | Inpatient (IN) ==
--- NOTE | 2020-10-15 16:14 | Anesthesiology Consultation ---
Date of Service October 15, 2020 Assessment & Plan (1) Encounter for pre-operative examination: - Per assessment on 10/15: Travel screen negative. 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 Uses PPE. No known COVID-19 positive contacts or current COVID-19 related sympt oms. Surgeon arranging preop COVID testing. Awaiting results. - S/P L4-L5 decompression/fusion: 03/07/18: Grade view 2, MAC 3.0, ETT 7.0 at [facility] - PONV: scope patch ordered for AM DOS - PCP note: 10/03/20: "The patient does not have any cardiac disease.. The patient is cleared for her anticipated surgery. 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 initiated (from PAT visit 09/23/20) History Surgery Operation Date: 11/17/20 07:45 Proposed Procedures p L2-L4 Decompression and Fusion, Spinal Cord Monitoring - Candelario Gonzalez DO Height/Weight Height: 5 ft 4.5 in Weight: 82.6 kg Allergies Allergy/AdvReac Type Severity Reaction Status Date / Time No Known Drug Allergies Allergy Unknown , Verified 09/30/20 15:29 Dust Mite Extract Allergy Intermediate dust/dirt- Uncoded 09/30/20 15:29 coughing, sneezing Medications Home Medications Medication Instructions Recorded Confirmed Last Taken ascorbic acid (vitamin C) 500 mg 500 mg PO BID #1 tab 06/06/19 10/15/20 Unknown tablet omeprazole 20 mg capsule,delayed 20 mg PO QPM 11/19/19 10/15/20 Unknown release bupropion HCl 100 mg tablet,12 hr 100 mg PO BID ea 05/12/20 10/15/20 Unknown sustained-release fluoxetine 20 mg capsule 20 mg PO BID 05/12/20 10/15/20 Unknown K2 Mk7 100 mg PO QAM 09/16/20 10/15/20 Unknown cannabidiol 100 mg PO DAILY PRN 09/16/20 10/15/20 Unknown celecoxib 200 mg PO QAM 09/16/20 10/15/20 Unknown fluticasone propionate 2 sprays INTRANASAL QAM 09/16/20 10/15/20 Unknown lorazepam 0.5 mg PO BID PRN 09/16/20 10/15/20 Unknown nicotine 1 patch TRANSDERMAL DAILY 09/16/20 10/15/20 Unknown simvastatin 20 mg PO QPM 09/16/20 10/15/20 Unknown spironolactone 100 mg PO QAM 09/16/20 10/15/20 Unknown turmeric root extract 500 mg PO BID 09/16/20 10/15/20 Unknown Pepto-Bismol 1 tab PO DAILY PRN 09/23/20 10/15/20 Unknown Past Medical History Medical History Anxiety Cholelithiasis occasional flares Depression Hidradenitis suppurativa Hyperlipidemia Obesity Exercise / Class Metabolic Activity III < 4 Walking/Shop/Light housework Past Family History Family History Uncle Lung cancer Mother Rheumatoid arthritis Pulmonary fibrosis Father Colorectal cancer Other No family history of adverse response to anesthesia Denies family history of Ovarian cancer Breast cancer Past Surgical History Surgical History H/O lumbosacral spine surgery L4-L5 decompression/fusion: 03/07/18: Grade view 2, MAC 3.0, ETT 7.0 at [facility] H/O sinus surgery H/O tubal ligation History of bladder surgery bladder sling History of blepharoplasty R/L History of bunionectomy left History of carpal tunnel surgery bilateral History of colonoscopy History of laryngoscopy with polyp removal Past Anesthesia History No Hx of Anesthesia Complications (except PONV) and No Family Hx of Anesthesia Complications History of PONV No Hx of Motion Sickness and History of PONV (significant PONV after lumbar fusion) Social History Smoking Status: Current every day smoker tobacco type: cigarettes Smoking cigarettes per day: 2 cigs/day (prior 1 PPD) x 30 years Do You Dip or Chew Tobacco: No Hx Alcohol Use: Yes Alcohol type: hard liquor alcohol intake frequency: holidays/special occasions only Hx Substance Use: No substance use type: does not use Review of Systems Patient denies chest pain, shortness of breath, fever, chills, cough, wheezing, palpitations. Physical Exam Vital Signs BP 106/69 P 79 TEMP 98.6 SP02 96%RA RESP 16 Physical Full neck and c-spine range of motion. Full TMJ range of motion. TMD 3 finger breaths Mallampati Score 3 Dentition: upper/lower dentures Lungs: clear throughout to auscultation Cardiac: regular rate and rhythm, no murmurs noted Spine: normal Carotid arteries: negative bruit Extremities: no edema Testing Laboratory Results 09/23/20 WBC 5.02 H/H 13.2/38.2 PLATELETS 257 SODIUM 138 POTASSIUM 3.6 CHLORIDE 105 CO2 24 BUN 16 CREATININE 0.63 GLUCOSE 96 PT 11.3 PTT 27.3 INR 1.1 UA negative TYPE AND SCREEN A-Ab- Electrocardiogram Date: 09/23/20 Findings: + NSR @ (68) Chest X-Ray Date: 09/23/20 FINDINGS: Lung volumes are normal. Lungs are clear. There is no pneumothorax or pleural effusion. Cardiac size is normal. Mediastinal contours are normal. There is no evidence for pulmonary edema. A few old right-sided rib fractures are incidentally noted. IMPRESSION: No acute cardiopulmonary findings.
--- NOTE | 2020-12-15 10:02 | PAT Medication Instructions ---
Medication Instructions Date of Service December 15, 2020 Home Medications Medication Instructions Recorded ascorbic acid (vitamin C) 500 mg 500 mg PO BID #1 tab 06/06/19 tablet spironolactone 100 mg tablet 100 mg PO QAM #30 tab 12/09/20 ascorbic acid (vitamin C) 500 mg tablet 500 mg PO BID omeprazole 20 mg capsule,delayed release 20 mg PO QPM bupropion HCl 100 mg tablet,12 hr sustained-release 100 mg PO BID fluoxetine 20 mg capsule 20 mg PO BID K2 Mk7 100 mg PO QAM cannabidiol 100 mg PO DAILY PRN celecoxib 200 mg PO QAM fluticasone propionate 2 sprays INTRANASAL QAM lorazepam 0.5 mg PO BID PRN nicotine 1 patch TRANSDERMAL DAILY simvastatin 20 mg PO QPM turmeric root extract 500 mg PO BID spironolactone 100 mg tablet 100 mg PO QAM bismuth subsalicylate [Pepto-Bismol] 1 - 2 tab PO QID PRN Continue as directed nicotine 1 patch TRANSDERMAL DAILY ASK your surgeon for instructions celecoxib 200 mg PO QAM STOP taking 2 weeks before surgery K2 Mk7 100 mg PO QAM turmeric root extract 500 mg PO BID DO NOT take the morning of surgery ascorbic acid (vitamin C) 500 mg tablet 500 mg PO BID cannabidiol 100 mg PO DAILY PRN bismuth subsalicylate [Pepto-Bismol] 1 - 2 tab PO QID PRN spironolactone 100 mg tablet 100 mg PO QAM Take morning of surgery With a small sip of water, OTHERWISE NOTHING TO EAT OR DRINK AFTER MIDNIGHT: bupropion HCl 100 mg tablet,12 hr sustained-release 100 mg PO BID fluoxetine 20 mg capsule 20 mg PO BID fluticasone propionate 2 sprays INTRANASAL QAM lorazepam 0.5 mg PO BID PRN (if needed) Take evening before surgery ascorbic acid (vitamin C) 500 mg tablet 500 mg PO BID omeprazole 20 mg capsule,delayed release 20 mg PO QPM bupropion HCl 100 mg tablet,12 hr sustained-release 100 mg PO BID fluoxetine 20 mg capsule 20 mg PO BID lorazepam 0.5 mg PO BID PRN (if needed) simvastatin 20 mg PO QPM bismuth subsalicylate [Pepto-Bismol] 1 - 2 tab PO QID PRN (if needed) Other Notes If you have any questions please call us at [phone] or [phone] or [phone] or [phone]
--- NOTE | 2020-12-15 10:04 | Anesthesiology Consultation ---
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 Wears PPE. No known Covid positive contacts or Covid related symptoms. Pt denies any known Covid infection in the past 90 days. Pt scheduled for preop Covid testing 12/22/20 at [facility]= will await results. Educated on importance of self quarantining, social distancing and wearing mask in public both for the patient and household contacts. Seen by PCP 10/03/20= "The patient does not have any cardiac disease.. The nette ent is cleared for her anticipated surgery. I do not see any contraindication." L4-5 decompression and fusion 03/07/18= Done under [facility] with Grade 2 view with MAC # 3.0. ETT #7.0. Teaching & Discussion Pre-Anesthesia Teaching/Discussion Notes: Instructed NPO after midnight before surgery,except medications with 15 cc of water. Medication instructions provided according to the [facility] guidelines. History Surgery Operation Date: 11/17/20 07:45 Proposed Procedures p L2-L4 Decompression and Fusion, Spinal Cord Monitoring - Candelario Gonzalez DO Operation Date: 12/29/20 07:45 Proposed Procedures p L2-L4 Decompression Fusion, Spinal Cord Monitoring - Candelario Gonzalez DO Height/Weight Height: 5 ft 4.5 in Weight: 89.4 kg Allergies Allergy/AdvReac Type Severity Reaction Status Date / Time No Known Drug Allergies Allergy Unknown , Verified 12/15/20 07:09 Dust Mite Extract Allergy Intermediate dust/dirt- Uncoded 12/15/20 07:09 coughing, sneezing Medications Home Medications Medication Instructions Recorded Confirmed Last Taken ascorbic acid (vitamin C) 500 mg 500 mg PO BID #1 tab 06/06/19 12/15/20 Unknown tablet omeprazole 20 mg capsule,delayed 20 mg PO QPM 11/19/19 12/15/20 Unknown release bupropion HCl 100 mg tablet,12 hr 100 mg PO BID ea 05/12/20 12/15/20 Unknown sustained-release fluoxetine 20 mg capsule 20 mg PO BID 05/12/20 12/15/20 Unknown K2 Mk7 100 mg PO QAM 09/16/20 12/15/20 Unknown cannabidiol 100 mg PO DAILY PRN 09/16/20 12/15/20 Unknown celecoxib 200 mg PO QAM 09/16/20 12/15/20 Unknown fluticasone propionate 2 sprays INTRANASAL QAM 09/16/20 12/15/20 Unknown lorazepam 0.5 mg PO BID PRN 09/16/20 12/15/20 Unknown nicotine 1 patch TRANSDERMAL DAILY 09/16/20 12/15/20 Unknown simvastatin 20 mg PO QPM 09/16/20 12/15/20 Unknown turmeric root extract 500 mg PO BID 09/16/20 12/15/20 Unknown spironolactone 100 mg tablet 100 mg PO QAM #30 tab 12/09/20 12/15/20 Unknown bismuth subsalicylate 1 - 2 tab PO QID PRN 12/15/20 12/15/20 Unknown [Pepto-Bismol] Past Medical History Medical History Anxiety Cholelithiasis Occasional flares- last flare one week ago- usually after eating-no current issues Does have gallbladder polyp Depression Hidradenitis suppurativa No current issues Hyperlipidemia Obesity Exercise / Class Metabolic Activity II 4-5 Yardwork/Stairs/Walk up hill (one flight of stairs - no chest pain or SOB) Past Family History Family History Uncle Lung cancer Mother Rheumatoid arthritis Pulmonary fibrosis Father Colorectal cancer Other No family history of adverse response to anesthesia Denies family history of Ovarian cancer Breast cancer Past Surgical History Surgical History H/O lumbosacral spine surgery L4-L5 decompression/fusion: 03/07/18: Grade view 2, MAC 3.0, ETT 7.0 at [facility] H/O sinus surgery H/O tubal ligation History of bladder surgery bladder sling History of blepharoplasty R/L History of bunionectomy left History of carpal tunnel surgery bilateral History of colonoscopy History of laryngoscopy with polyp removal Past Anesthesia History No Hx of Anesthesia Complications and No Family Hx of Anesthesia Complications History of PONV No Hx of Motion Sickness and History of PONV (PONV x 1 episode- scop patch ordered for AM of surgery ) Social History Smoking Status: Current every day smoker tobacco type: cigarettes Smoking cigarettes per day: 2 cigs/day (prior 1 PPD) x 30 years Do You Dip or Chew Tobacco: No Hx Alcohol Use: Yes Alcohol type: hard liquor alcohol intake frequency: holidays/special occasions only Hx Substance Use: No substance use type: does not use Review of Systems Patient denies chest pain, shortness of breath, dyspnea on exertion, reflux, cough, wheezing, palpitations. No hx of seizures, stroke, AK, apnea/snoring (does sleep alone). No hx of blood clots or blood transfusions Physical Exam Vital Signs VITALS BP 108/70 P 80 TEMP 98.7 SP02 94% RESP 16 Constitutional no acute distress ENMT Mouth: no TMJ clicking Thyromental Distance: < 3.5 Finger Breadths (3.0) Mallampati Class: III Full dentures on top and bottom Neck neck extension not limited Respiratory normal respiratory effort; no respiratory distress Auscultation: lungs clear to auscultation bilaterally; no wheezes Cardiovascular Rate/Rhythm: regular rate and regular rhythm Heart Sounds: no murmur Vessels: no carotid bruit Musculoskeletal Spine: no pain with cervical ROM Extremities: extremities normal to inspection Psychiatric Orientation: alert Testing Laboratory Results 12/15/20 10:48 12/15/20 10:48 PT 10.3 Seconds (9.0-12.0) 12/15/20 10:48 INR 1.0 (0.9-1.1) 12/15/20 10:48 APTT 23.6 Seconds (21.0-31.0) 12/15/20 10:48 Urine Color Yellow 12/15/20 Unknown Urine Appearance Clear (Clear) 12/15/20 Unknown Urine pH 5.0 (4.5-7.5) 12/15/20 Unknown Ur Specific Goodell 1.018 (1.000-1.030) 12/15/20 Unknown Urine Protein Negative (Negative) 12/15/20 Unknown Urine Glucose (UA) Negative (Negative) 12/15/20 Unknown Urine Ketones Negative (Negative) 12/15/20 Unknown Urine Nitrite Negative (Negative) 12/15/20 Unknown Ur Leukocyte Esterase 1+ (Negative) H 12/15/20 Unknown Urine WBC (Auto) 1-5 /hpf (0-5) 12/15/20 Unknown Urine RBC (Auto) 0-4 /hpf (0-4) 12/15/20 Unknown U Hyaline Cast (Auto) 0 /lpf (0-5) 12/15/20 Unknown U Epithel Cells (Auto) 5-10 /lpf (0-5) H 12/15/20 Unknown Urine Bacteria (Auto) Negative (Negative) 12/15/20 Unknown Blood Type A Negative 12/15/20 10:48 Antibody Screen NEGATIVE 12/15/20 10:48 Electrocardiogram Date: 09/23/20 Findings: + NSR @ (68) Chest X-Ray Date: 09/23/20 Findings: + NAD
[2020-12-15 11:18] LABS: Basophils # (auto) 0.03 K/uL (0-0.2); Basophils % (auto) 0.6 %; Eosinophils # (auto) 0.13 K/uL (0-0.5); Eosinophils % (auto) 2.5 %; Hematocrit (blood only) 41.2 % (37-47); Hemoglobin 13.7 g/dL (12.0-16.0); Immature Granulocytes # (auto) 0.01 K/uL (0.00-0.02); Immature Granulocytes % (auto) 0.2 %; Lymphocytes # (auto) 1.56 K/uL (1.2-3.4); Lymphocytes % (auto) 29.6 %; Mean Corpuscular Hemoglobin 31.4 pg (25-34); Mean Corpuscular Hgb Conc 33.3 g/dL (32-36); Mean Corpuscular Volume 94.3 fL (80-100); Mean Platelet Volume 9.3 fL (7.4-10.4); Monocytes # (auto) 0.41 K/uL (0.11-0.59); Monocytes % (auto) 7.8 %; Neutrophils # (auto) 3.13 K/uL (1.4-6.5); Neutrophils % (auto) 59.3 %; Platelet Count 256 K/uL (130-400); RDW Coefficient of Variation 14.1 % (11.5-14.5); RDW Standard Deviation 48.6 fL (36.4-46.3); Red Blood Count 4.37 M/uL (4.2-5.4); White Blood Count 5.27 K/uL (4.8-10.8)
[2020-12-15 11:20] LABS: Appearance Urine Clear (Clear); Bacteria Urine Automated Negative (Negative); Bilirubin Urine Negative (Negative); Blood Urine Negative (Negative); Cast Urine Automated 0 /lpf (0-5); Color Urine Yellow; Glucose Urine UA Negative (Negative); Ketones Urine Negative (Negative); Leukocyte Esterase Urine 1+ (Negative); Nitrite Urine Negative (Negative); Protein Urine Negative (Negative); RBC Urine Automated 0-4 /hpf (0-4); Specific Gravity Urine 1.018 (1.000-1.030); Urobilinogen Urine Negative (Negative)
[2020-12-15 11:28] LABS: Partial Thromboplastin Ratio 0.9; Partial Thromboplastin Time 23.6 Seconds (21.0-31.0); Prothrombin Time 10.3 Seconds (9.0-12.0)
[2020-12-15 12:01] LABS: BUN Creatinine Ratio 45.2 (10-20); Calcium 9.2 mg/dl (8.5-10.1); Creatinine Clr Calc Pharmacy 103.7 ml/min; Est GFR (African American) 114.7; Potassium 4.1 mmol/L (3.5-5.1)
[~2020-12-29 10:23] MED LIST changes: +ACETAMINOPHEN 500 MG TAB PO SCH; -ATV5 PO; -BIOFTAB24; -CALC-393 PO; +CeleBREX 200 MG CAP PO SCH; -DIPH-437 PO; -EYED OPB; -FLUO20CA35 PO; -FLUT0.15; +GABAPENTIN 600 MG DOSE PO SCH; +LR 15ML/HR IV SCH; -MEDR150I INJ; -NICO14DI31 TD; -NICO1KIT EX; -PRLSR20 PO; -RXC5 PO; -SIMV20TA2 PO; -allergy injections INJ; +ceFAZolin 2000MG 2,000 MG/15 ML SYR IV SCH
[2020-12-29] MEDS ORDERED: MIDAZOLAM HCL 1 MG/ML 2ML VIAL ONE (10:31)
[2020-12-29] MEDS ORDERED: HYDROmorphone INJ 2 MG/ML SYR/VIAL ONE (10:31)
[2020-12-29] MEDS ORDERED: LIDOCAINE HCL 2% 2 ML VIAL/AMP(20MG/ML) INFIL ONE (11:45)
[2020-12-29] MEDS ORDERED: ROCURONIUM BROMIDE 10 MG/ML 5 ML VIAL IV ONE ×2 (11:45→13:32)
[2020-12-29] MEDS ORDERED: KETOROLAC 30 MG/ML VIAL ONE (11:45)
[2020-12-29] MEDS ORDERED: NEOSTIGMINE METHYLSULFATE 1 MG/ML 10ML VIAL ONE (11:45)
[2020-12-29] MEDS ORDERED: GLYCOPYRROLATE 0.2 MG/ML VIAL ONE (11:45)
[2020-12-29] MEDS ORDERED: ONDANSETRON INJ 2 MG/ML 2 ML VIAL ONE (11:45)
[2020-12-29] MEDS ORDERED: DEXAMETHASONE SOD INJ 4 MG/ML VIAL ONE (11:45)
[2020-12-29] MEDS ORDERED: PROPOFOL IV EMULSION 10 MG/ML 20 ML VIAL IV ONE (11:45)
[2020-12-29] MEDS ORDERED: ATROPINE SULFATE 0.1 MG/ML 10ML SYR IV PRN (12:17)
[2020-12-29] MEDS ORDERED: PROMETHAZINE HCL 12.5 MG in SODIUM CHLORIDE 0.9% 50 ML IV PRN ×2 (12:17→17:06)
[2020-12-29] MEDS ORDERED: ONDANSETRON INJ 2 MG/ML 2 ML VIAL IV PRN ×2 (12:17→17:06)
[2020-12-29] MEDS ORDERED: ePHEDrine sulfate 50 MG/ML AMP IV PRN (12:17)
--- NOTE | 2020-12-29 12:35 | History & Physical Bridge Note ---
Date of Service December 29, 2020 History & Physical Bridge Note I have examined the patient, reviewed the History & Physical and in the interval since the performance of the History & Physical I have noted the following changes of clinical significance: no changes noted
--- NOTE | 2020-12-29 12:36 | History & Physical Report ---
Date of Service December 29, 2020 Assessment & Plan (1) Neurogenic claudication due to lumbar spinal stenosis: Admission and Anticipated Discharge Date Admission Date: L2-L4 decompression fusion, hardware removal L4-L5. History of Present Illness Chief Complaint: Back and bilateral leg pain Primary Care Provider: Saeed Morris MD This is a 55-year-old female who presents with chronic persistent back and leg pain. Failing course of nonoperative care is here for surgical invention. Allergies Allergy/AdvReac Type Severity Reaction Status Date / Time No Known Drug Allergies Allergy Unknown , Verified 12/29/20 10:41 Dust Mite Extract Allergy Intermediate dust/dirt- Uncoded 12/29/20 10:41 coughing, sneezing Home Medications Medication Instructions Recorded Confirmed Type ascorbic acid (vitamin C) 500 mg 500 mg PO BID #1 tab 06/06/19 12/29/20 Rx tablet omeprazole 20 mg capsule,delayed 20 mg PO QPM 11/19/19 12/29/20 History release bupropion HCl 100 mg tablet,12 hr 100 mg PO BID ea 05/12/20 12/22/20 History sustained-release fluoxetine 20 mg capsule 20 mg PO BID 05/12/20 12/22/20 History K2 Mk7 100 mg PO QAM 09/16/20 12/29/20 History cannabidiol [Epidiolex] 100 mg PO DAILY PRN 09/16/20 12/29/20 History celecoxib 200 mg PO QAM 09/16/20 12/29/20 History fluticasone propionate 2 sprays INTRANASAL QAM 09/16/20 12/29/20 History lorazepam 0.5 mg PO BID PRN 09/16/20 12/22/20 History nicotine 1 patch TRANSDERMAL DAILY 09/16/20 12/29/20 History simvastatin 20 mg PO QPM 09/16/20 12/29/20 History turmeric root extract 500 mg PO BID 09/16/20 12/29/20 History spironolactone 100 mg tablet 100 mg PO QAM #30 tab 12/09/20 12/29/20 Rx bismuth subsalicylate 1 - 2 tab PO QID PRN 12/15/20 12/29/20 History [Pepto-Bismol] Past Med/Surg History Medical History Anxiety Cholelithiasis Occasional flares- last flare one week ago- usually after eating-no current issues Does have gallbladder polyp Depression Hidradenitis suppurativa No current issues Hyperlipidemia Obesity Surgical History H/O lumbosacral spine surgery L4-L5 decompression/fusion: 03/07/18: Grade view 2, MAC 3.0, ETT 7.0 at [facility] H/O sinus surgery H/O tubal ligation History of bladder surgery bladder sling History of blepharoplasty R/L History of bunionectomy left History of carpal tunnel surgery bilateral History of colonoscopy History of laryngoscopy with polyp removal Family History Uncle Lung cancer Mother Rheumatoid arthritis Pulmonary fibrosis Father Colorectal cancer Other No family history of adverse response to anesthesia Denies family history of Ovarian cancer Breast cancer Social History Smoking Status: Former smoker Age Quit Using Tobacco: 51; Cigarettes Per Day: 2 cigs/day (prior 1 PPD) x 30 years; Second Hand Exposure: Yes; Do You Dip or Chew Tobacco: No; Tobacco Cessation Education Requested by Patient: No Hx Alcohol Use: No Hx Substance Use: No Preferred Language: Faroese Communication Ability: Effective Magazine Publisher Required: No Beliefs That Will Affect Care: None marital status: / Current Living Situation: Alone current occupational status: employed Other Information That Helps Us Care for You: No Feels Safe at Home: Yes Safety Concerns: Feels Safe At This Time Assistive Devices: Cane, Denture - Upper and Denture - Lower Physical Exam Physical Exam: Patient is alert and oriented Heart regular rate and rhythm Lungs clear to auscultation Results & Data ([facility]) Vital Signs (Past 12 Hours) Vital Signs Temp Pulse Resp BP Pulse Ox 12/29/20 10:55 37 C 87 20 142/97 H 95
[2020-12-29] MEDS ORDERED: BUPIVACAINE/EPINEPHRINE 0.5% MPF 1:200,000 30 ML VIAL ONE (12:42)
[2020-12-29] MEDS ORDERED: BACITRACIN INJ 50,000 UNIT VIAL ONE (12:43)
[2020-12-29] MEDS ORDERED: ePHEDrine sulfate 50 MG/ML SYR ONE (13:38)
[2020-12-29] MEDS ORDERED: FLOSEAL HEMOSTATIC MATRIX 10ML TOP ONE (14:45)
--- NOTE | 2020-12-29 14:56 | Operative Report ---
Post Operative Report Pre & Post Diagnosis Operation Date: 11/17/20 07:45 <No data on this case meets the specified criteria> Operation Date: 12/29/20 11:55 Pre-Op Diagnosis: Spinal Stenosis,Lumbar region w/neurogenic claudication Post-Op Diagnosis: Spinal Stenosis,Lumbar region w/neurogenic claudication I identified the patient and participated in the time-out.: Yes Procedure Operation Date: 11/17/20 07:45 <No data on this case meets the specified criteria> Operation Date: 12/29/20 11:55 Actual Procedures #1 Removal of posterior instrumentation L4-L5 for #2 exploration of fusion L4- 5. #3 lumbar decompression bilateral medial facetectomies and foraminotomies L2-3 L3-4. #4 posterior spinal fusion L2-3 L3-4. #5 placement posterior instrumentation L2-3 L3-4. #6 interbody fusion L3-4. #7 placed a peek cage 12 x 26 mm at L3-4. #8 placement locally harvested morselized autograft in the posterior gutters. #9 placement infuse collagen sponge, master graft in the posterior lateral gutters and ostial amp and interbody space. Surgeon Candelario Gonzalez, DO Information Technology Professor Randall Rhoades Estimated Blood Loss 250 Findings See Below The patient is 5 foot 4 inches tall weighing over 92 kg with a BMI in excess of 34. The patient's body habitus did add significant technical difficulty requiring her deepest retractors and longus instruments in order to perform her procedure. This had at least 50% increase to the operative time. Specimens None Indications This is a 55-year-old female who presents with above-mentioned diagnosis after failing course of nonoperative care is here for the above-mentioned procedure. Description of Procedure Patient was met with identified informed consent obtained. Patient was then taken to the operative suite underwent a patient placed in a prone position the Mariano table on top Amor frame. All bony prominences well-paddedEyes inspected to ensure no external pressure placed upon them. At this point lumbar spine was prepped and draped in normal sterile fashion. Sharp dissection with the assistance of Bovie cautery performed down to expose the lamina transverse processes of L2-L3 and instrumentation at L4 and L5 bilaterally. Then proceeded to move the hardware bilaterally at L4-L5 explore the fusion mass noting it to be mature and intact. Informed complete laminectomy of L3 and L2 including bilateral medial facetectomies and foraminotomies addressing severe spinal stenosis. Pedicle screws were then placed in L2-L3-L4 bilaterally with assistance of fluoroscopy the process kevyn placed. By way of a transforaminal portion left complete discectomy of L4-5 was performed endplates curetted to subcortical bleeding bone and a 12 x 26 mm peek cage filled with osteobone graft tapped in position. The rods were then locked in final position bilaterally. The transverse processes of L2-L3-L4 burred to subcortical bleeding bone. Infuse collagen sponge master graft local autograft was placed in posterior gutters. 15 round LANCE drain inserted. The incision was then closed with 1 Vicryl to fascia 2-0 Vicryl subcutaneously and 4 Monocryl for final skin closure. Steri-Strip sterile dressing was placed. Patient waken taken PACU stable condition. Please note spinal cord monitoring was utilized at the procedure no changes noted. Lastly Randall Rhoades was present at the entire procedure involved the patient positioning complex portions of the surgery and final skin closure. I attest to the content of the Intraoperative Record and any orders documented therein. Any exceptions are noted below.
--- NOTE | 2020-12-29 15:13 | Fluoroscopy Report ---
INTRAOPERATIVE RADIOGRAPHS CLINICAL HISTORY: L2-L4 spinal fusion. Fluoroscopy time: 18 seconds. FINDINGS: 2 spot fluoroscopic views of the lumbar spine are presented. There has been discectomy at L 3-L4 and L4-L5. Interpedicular screws are present from L2 to L4. The orthopedic hardware appears inta ct. IMPRESSION: Intraoperative images from lumbar spinal fusion surgery as above. Electronically signed by: Cipriano Donato M.D. 12/29/2020 3:12 PM
[2020-12-29] MEDS: fentaNYL citrate 100 MCG/2 ML VIAL IV PRN ×2 (15:31→15:36)
[2020-12-29] MEDS: HYDROmorphone INJ 2 MG/ML SYR/VIAL IV PRN ×4 (15:58→16:14)
--- NOTE | 2020-12-29 16:32 | Anesthesiology Progress Note ---
Date of Service December 29, 2020 Anesthesia Post Procedure Vital Signs Vital Signs: Temp Pulse Pulse Resp BP BP Pulse Ox 12/29/20 16:31 97.5 F L 86 12 107/58 L 97 12/29/20 16:20 69 12 96/62 L 99 12/29/20 16:10 69 16 117/66 95 12/29/20 16:00 86 15 118/62 97 12/29/20 15:50 90 15 106/73 97 12/29/20 15:40 87 10 L 126/70 96 12/29/20 15:30 93 H 19 130/78 97 12/29/20 15:22 97.3 F L 103 H 17 129/82 97 12/29/20 12:40 87 10 L 118/65 96 12/29/20 10:55 98.6 F 87 20 142/97 H 95 Pain Intensity Back: Pain Intensity: 5 Transfer of Care Handoff Completed per policy Notes Mental Status: alert / awake / arousable and participated in evaluation Patient Amnestic to Procedure: Yes Nausea / Vomiting: adequately controlled Pain: adequately controlled Airway Patency, RR, SpO2: stable & adequate BP & HR: stable & adequate Hydration State: stable & adequate Anesthetic Complications: no major complications apparent and Pt Satisfied with anesthetic care
[2020-12-29] MEDS ORDERED: hydrOXYzine HCl 25 MG TAB PO PRN (17:06)
[2020-12-29] MEDS ORDERED: DO NOT ADMINISTER PNEUMOCOCCAL VACCINE PRN (17:06)
[2020-12-29] MEDS ORDERED: NALOXONE HCL 0.4 MG/1 ML VIAL/CARP IV PRN (17:06)
[2020-12-29] MEDS ORDERED: diphenhydrAMINE Capsule 25 MG CAP PO PRN (17:06)
[2020-12-29] MEDS ORDERED: ONDANSETRON 4 MG OD TAB PO PRN (17:06)
[2020-12-29] MEDS ORDERED: DO NOT ADMINISTER FLU VACCINE PRN (17:06)
[2020-12-29] MEDS ORDERED: LORazepam 0.5 MG/1 ML VIAL IV PRN (17:06)
[2020-12-29] MEDS ORDERED: SOD PHOSPHATE/SOD BIPHOSPHATE ENEMA 132 ML BTL PR PRN (17:06)
[2020-12-29] MEDS ORDERED: HYDROmorphone INJ 1 MG/ML SYRINGE IV PRN (17:06)
[2020-12-29] MEDS ORDERED: LORazepam 0.5 MG TAB PO PRN (17:06)
[2020-12-29] MEDS ORDERED: MAGNESIUM HYDROXIDE SUSP 30 ML UDC PO PRN (17:06)
[2020-12-29] MEDS ORDERED: FAMOTIDINE 20 MG TAB PO PRN (17:06)
[2020-12-29] MEDS ORDERED: CANNABIDIOL 100 MG/ML PO PRN (17:06)
[2020-12-29] MEDS ORDERED: traMADol HCL 50 MG TABLET PO PRN (17:06)
[2020-12-29] MEDS ORDERED: ALUMINUM/MAGNESIUM SUSP 30 ML UDC PO PRN (17:06)
[2020-12-29] MEDS ORDERED: ACETAMINOPHEN 1,000 MG/100 ML VIAL IV PRN (17:06)
[2020-12-29] MEDS ORDERED: HYDROmorphone INJ 0.5 MG/0.5 ML SYR IV PRN (17:06)
[2020-12-29] MEDS ORDERED: METOCLOPRAMIDE HCL INJ 5 MG/ML 2 ML VIAL IV PRN (17:06)
[2020-12-29] MEDS: Scopolamine CHECK PATCH PLACEMENT SCH ×2 (18:12→23:36)
[2020-12-29] MEDS: LACTATED RINGER'S 1,000 ML IV SCH (18:14)
[2020-12-29] MEDS: KETOROLAC TROMETHAMINE 15 MG/ML VIAL IV SCH ×2 (18:15→23:36)
--- NOTE | 2020-12-29 19:02 | Hospitalist Consultation ---
Date of Consultation December 29, 2020 Assessment & Plan (1) Neurogenic claudication due to lumbar spinal stenosis: Patient underwent hardware removal L4-5 and L2 4 decompression fusion with interbody L3-[address] Gonzalez on 12/29/2020 intractable radicular back pain (2) Depression: Continues on bupropion, fluoxetine as needed lorazepam (3) Dyslipidemia: Continues on simvastatin History of Present Illness Attending Physician: Candelario Gonzalez, DO 12/29/20 L2-L4 Decompression Fusion, Interbody at L3-L4, Spinal Cord Monitoring Surgeon: Candelario Gonzalez L4-L5 Hardware Removal Patient is slightly sedated from post procedure she feels improvement in her discomfort only request is for nicotine patch Allergies Allergy/AdvReac Type Severity Reaction Status Date / Time No Known Drug Allergies Allergy Unknown , Verified 12/29/20 10:41 Dust Mite Extract Allergy Intermediate dust/dirt- Uncoded 12/29/20 10:41 coughing, sneezing Home Medications Medication Instructions Recorded Confirmed Type ascorbic acid (vitamin C) 500 mg 500 mg PO BID #1 tab 06/06/19 12/29/20 Rx tablet omeprazole 20 mg capsule,delayed 20 mg PO QPM 11/19/19 12/29/20 History release bupropion HCl 100 mg tablet,12 hr 100 mg PO BID ea 05/12/20 12/22/20 History sustained-release fluoxetine 20 mg capsule 20 mg PO BID 05/12/20 12/22/20 History K2 Mk7 100 mg PO QAM 09/16/20 12/29/20 History cannabidiol [Epidiolex] 100 mg PO DAILY PRN 09/16/20 12/29/20 History celecoxib 200 mg PO QAM 09/16/20 12/29/20 History fluticasone propionate 2 sprays INTRANASAL QAM 09/16/20 12/29/20 History lorazepam 0.5 mg PO BID PRN 09/16/20 12/22/20 History nicotine 1 patch TRANSDERMAL DAILY 09/16/20 12/29/20 History simvastatin 20 mg PO QPM 09/16/20 12/29/20 History turmeric root extract 500 mg PO BID 09/16/20 12/29/20 History spironolactone 100 mg tablet 100 mg PO QAM #30 tab 12/09/20 12/29/20 Rx bismuth subsalicylate 1 - 2 tab PO QID PRN 12/15/20 12/29/20 History [Pepto-Bismol] oxycodone 5 mg PO Q6H PRN #30 tab 12/30/20 Rx tramadol 50 mg PO Q6H PRN #30 tab 12/30/20 Rx Patient History Medical History (Updated 12/29/20 @ 19:01 by Baljinder Vargas MD) Anxiety Cholelithiasis Occasional flares- last flare one week ago- usually after eating-no current issues Does have gallbladder polyp Depression Hidradenitis suppurativa No current issues Hyperlipidemia Obesity Surgical History H/O lumbosacral spine surgery L4-L5 decompression/fusion: 03/07/18: Grade view 2, MAC 3.0, ETT 7.0 at [facility] H/O sinus surgery H/O tubal ligation History of bladder surgery bladder sling History of blepharoplasty R/L History of bunionectomy left History of carpal tunnel surgery bilateral History of colonoscopy History of laryngoscopy with polyp removal Family History Uncle Lung cancer Mother Rheumatoid arthritis Pulmonary fibrosis Father Colorectal cancer Other No family history of adverse response to anesthesia Denies family history of Ovarian cancer Breast cancer Social History Smoking Status: Former smoker Age Quit Using Tobacco: 51; Cigarettes Per Day: 2 cigs/day (prior 1 PPD) x 30 years; Second Hand Exposure: Yes; Do You Dip or Chew Tobacco: No; Tobacco Cessation Education Requested by Patient: No Hx Alcohol Use: No Hx Substance Use: No Preferred Language: Telugu Communication Ability: Effective Ocular Pathologist Required: No Beliefs That Will Affect Care: None marital status: / Current Living Situation: Alone current occupational status: employed Other Information That Helps Us Care for You: No Feels Safe at Home: Yes Safety Concerns: Feels Safe At This Time Assistive Devices: Cane Review of Systems Review of Systems: Mild distress and fatigue no headache, blurry or double vision no speech or swallowing issues no chest pain, pressure or palpitations no shortness of breath, cough or wheezes no abdominal pain, nausea or vomiting, diarrhea or constipation no dysuria, hematuria or frequency no focal joint pain or swelling Improved radicular back pain but no CVA tenderness no bruising, bleeding or rashes no focal signs of weakness or numbness or altered sensation no complaints of anxiety or depression.. Physical Exam Physical Exam: The patient appeared mildly obese with a BMI of 34 Vital signs as documented. Head exam is normocephalic atraumatic no scleral icterus Neck is without JVD, thyromegaly, or carotid bruits. Lungs are clear to auscultation, no focal loss of breath sounds Cardiac exam, Rhythm is regular.. No murmurs, rubs or gallops. Abdominal exam reveals normal bowel sounds, soft non tender, no masses Extremities are nonedematous and both pedal pulses are present Neurologic exam is alert and oriented, no focal loss of strength or sensation Skin is without bruises or rashes Psychologically is without concerns for anxiety or depression Results & Data Results & Data ([facility]) Vital Signs (Past 12 Hours) Vital Signs Temp Pulse Pulse Pulse Resp BP BP 12/29/20 18:07 81 16 101/63 12/29/20 17:28 78 16 102/63 12/29/20 16:50 98.1 F 74 16 109/66 12/29/20 16:35 88 14 116/64 12/29/20 16:31 97.5 F L 86 12 107/58 L 12/29/20 16:20 69 12 96/62 L 12/29/20 16:10 69 16 117/66 12/29/20 16:00 86 15 118/62 12/29/20 15:50 90 15 106/73 12/29/20 15:40 87 10 L 126/70 12/29/20 15:30 93 H 19 130/78 12/29/20 15:22 97.3 F L 103 H 17 129/82 12/29/20 12:40 87 10 L 118/65 12/29/20 10:55 98.6 F 87 20 142/97 H Pulse Ox 12/29/20 18:07 97 12/29/20 17:28 98 12/29/20 16:50 98 12/29/20 16:35 93 12/29/20 16:31 97 12/29/20 16:20 99 12/29/20 16:10 95 02/22/21 16:00 97 12/29/20 15:50 97 12/29/20 15:40 96 12/29/20 15:30 97 12/29/20 15:22 97 12/29/20 12:40 96 12/29/20 10:55 95 PG Care Time/CCT Total # of Minutes Spent Total Time Spent with Patient: Total time spent is greater than 50% in coordination of care (as documented) at patient's floor/unit and/or counseling patient: Coding Level of Care Code 82277 Inpt Consult Level 3 Diagnoses Neurogenic claudication due to lumbar spinal stenosis M48.062 Depression F32.9 Dyslipidemia E78.5
[2020-12-29] MEDS: ceFAZolin 2000MG 2,000 MG/15 ML SYR IV SCH (19:34)
[2020-12-29] MEDS: buPROPion SR 100 MG TABCR PO SCH (19:35)
[2020-12-29] MEDS: PANTOprazole 40 MG TAB PO SCH (19:35)
[2020-12-29] MEDS: FLUoxetine HCL 20 MG CAP PO SCH (19:36)
[2020-12-29] MEDS: ASCORBIC ACID 500 MG TAB PO SCH (19:37)
[2020-12-29] MEDS: DOCUSATE SODIUM/SENNA 50/8.6MG TAB PO SCH (19:37)
[2020-12-29] MEDS: SIMVASTATIN 20 MG TAB PO SCH (19:38)
[2020-12-30] MEDS: oxyCODONE HCL IR 5 MG TAB (IMMEDIATE RELEASE) PO PRN ×2 (03:28→16:32)
[2020-12-30] MEDS: ceFAZolin 2000MG 2,000 MG/15 ML SYR IV SCH (03:29)
[2020-12-30] MEDS: LACTATED RINGER'S 1,000 ML IV SCH (04:10)
[2020-12-30] MEDS: KETOROLAC TROMETHAMINE 15 MG/ML VIAL IV SCH ×2 (05:49→13:02)
[2020-12-30] MEDS: ACETAMINOPHEN 500 MG TAB PO PRN (05:51)
[2020-12-30 06:27] LABS: Basophils # (auto) 0.01 K/uL (0-0.2); Basophils % (auto) 0.1 %; Eosinophils # (auto) 0.01 K/uL (0-0.5); Eosinophils % (auto) 0.1 %; Hematocrit (blood only) 33.4 % (37-47); Hemoglobin 11.4 g/dL (12.0-16.0); Immature Granulocytes # (auto) 0.02 K/uL (0.00-0.02); Immature Granulocytes % (auto) 0.2 %; Lymphocytes % (auto) 9.8 %; Mean Corpuscular Hemoglobin 31.5 pg (25-34); Mean Corpuscular Hgb Conc 34.1 g/dL (32-36); Mean Corpuscular Volume 92.3 fL (80-100); Mean Platelet Volume 8.8 fL (7.4-10.4); Monocytes # (auto) 0.63 K/uL (0.11-0.59); Monocytes % (auto) 6.2 %; Neutrophils # (auto) 8.51 K/uL (1.4-6.5); Neutrophils % (auto) 83.6 %; Platelet Count 229 K/uL (130-400); RDW Coefficient of Variation 14.1 % (11.5-14.5); RDW Standard Deviation 48.1 fL (36.4-46.3); Red Blood Count 3.62 M/uL (4.2-5.4); White Blood Count 10.18 K/uL (4.8-10.8)
[2020-12-30 07:01] LABS: BUN Creatinine Ratio 29.5 (10-20); Calcium 8.3 mg/dl (8.5-10.1); Creatinine Clr Calc Pharmacy 117.9 ml/min; Est GFR (African American) 118.9; Est GFR (Non-African American) 102.6; Potassium 3.7 mmol/L (3.5-5.1)
--- NOTE | 2020-12-30 08:07 | Anesthesiology Progress Note ---
Date of Service December 30, 2020 Anesthesia Post Procedure Vital Signs Vital Signs: Temp Pulse Pulse Pulse Resp BP BP 12/30/20 07:45 36.5 C 69 16 108/74 12/30/20 02:47 36.7 C 73 16 95/63 L 12/29/20 23:53 69 16 12/29/20 22:15 36.4 C L 79 16 100/66 12/29/20 19:56 36.7 C 80 16 120/73 12/29/20 18:07 81 16 101/63 12/29/20 17:28 78 16 102/63 12/29/20 16:50 36.7 C 74 16 109/66 12/29/20 16:35 88 14 116/64 12/29/20 16:31 36.4 C L 86 12 107/58 L 12/29/20 16:20 69 12 96/62 L 12/29/20 16:10 69 16 117/66 12/29/20 16:00 86 15 118/62 12/29/20 15:50 90 15 106/73 12/29/20 15:40 87 10 L 126/70 12/29/20 15:30 93 H 19 130/78 12/29/20 15:22 36.3 C L 103 H 17 129/82 12/29/20 12:40 87 10 L 118/65 12/29/20 10:55 37 C 87 20 142/97 H Pulse Ox 12/30/20 07:45 95 12/30/20 02:47 95 12/29/20 23:53 98 12/29/20 22:15 91 12/29/20 19:56 92 12/29/20 18:07 97 12/29/20 17:28 98 12/29/20 16:50 98 12/29/20 16:35 93 12/29/20 16:31 97 12/29/20 16:20 99 12/29/20 16:10 95 12/29/20 16:00 97 12/29/20 15:50 97 12/29/20 15:40 96 12/29/20 15:30 97 12/29/20 15:22 97 12/29/20 12:40 96 12/29/20 10:55 95 Pain Intensity Back: Pain Intensity: 7 Notes Mental Status: alert / awake / arousable and participated in evaluation Patient Amnestic to Procedure: Yes Nausea / Vomiting: see Notes below Pain: adequately controlled Airway Patency, RR, SpO2: stable & adequate BP & HR: stable & adequate Hydration State: stable & adequate Anesthetic Complications: no major complications apparent and Pt Satisfied with anesthetic care
--- NOTE | 2020-12-30 08:20 | Hospitalist Progress Note ---
Date of Service December 30, 2020 Assessment & Plan (1) Neurogenic claudication due to lumbar spinal stenosis: Patient underwent hardware removal L4-5 and L2 4 decompression fusion with interbody L3-[address] Gonzalez on 12/29/2020 intractable radicular back pain (2) Depression: remains on bupropion, fluoxetine as needed lorazepam (3) Dyslipidemia: Continues on simvastatin Admission and Anticipated Discharge Date Admission Date: December 29, 2020 Subjective Back pain is controlled leg symptoms markedly improved. still with some mild numbness around knee but otherwise symptoms are greatly improved Review of Systems Review of Systems: Mild distress and fatigue no headache, blurry or double vision no speech or swallowing issues no chest pain, pressure or palpitations no shortness of breath, cough or wheezes no abdominal pain, nausea or vomiting, diarrhea or constipation no dysuria, hematuria or frequency no focal joint pain or swelling Improved radicular back pain but no CVA tenderness no bruising, bleeding or rashes no focal signs of weakness or numbness or altered sensation no complaints of anxiety or depression.. Physical Exam Physical Exam: The patient appeared mildly obese with a BMI of 34 Vital signs as documented. Head exam is normocephalic atraumatic no scleral icterus Neck is without JVD, thyromegaly, or carotid bruits. Lungs are clear to auscultation, no focal loss of breath sounds Cardiac exam, Rhythm is regular.. No murmurs, rubs or gallops. Abdominal exam reveals normal bowel sounds, soft non tender, no masses Extremities are nonedematous and both pedal pulses are present Neurologic exam is alert and oriented, no focal loss of strength or sensation Skin is without bruises or rashes Psychologically is without concerns for anxiety or depression Results & Data Results & Data ([facility]) Vital Signs (Past 12 Hours) Vital Signs Temp Pulse Resp BP Pulse Ox 12/30/20 07:45 97.7 F 69 16 108/74 95 12/30/20 02:47 98.1 F 73 16 95/63 L 95 12/29/20 23:53 69 16 98 12/29/20 22:15 97.5 F L 79 16 100/66 91 PG Care Time/CCT Total # of Minutes Spent Total Time Spent with Patient: Total time spent is greater than 50% in coordination of care (as documented) at patient's floor/unit and/or counseling patient: Coding Level of Care Code 48491 Subseq Hosp Care Lvl 2 Diagnoses Neurogenic claudication due to lumbar spinal stenosis M48.062 Depression F32.9 Dyslipidemia E78.5
[2020-12-30] MEDS: FLUoxetine HCL 20 MG CAP PO SCH ×2 (08:24→20:22)
[2020-12-30] MEDS: Scopolamine CHECK PATCH PLACEMENT SCH ×3 (08:24→22:52)
[2020-12-30] MEDS: SPIRONOLACTONE 100 MG TAB PO SCH (08:24)
[2020-12-30] MEDS: buPROPion SR 100 MG TABCR PO SCH ×2 (08:24→17:29)
[2020-12-30] MEDS: ASCORBIC ACID 500 MG TAB PO SCH ×2 (08:24→20:23)
[2020-12-30] MEDS: FLUTICASONE PROPIONATE NA SPR 16 GM BTL SCH (08:28)
[2020-12-30] MEDS ORDERED: NICOTINE 7 MG/24 HR TDSY TD SCH (09:00)
--- NOTE | 2020-12-30 12:33 | Orthopedic Progress Note ---
Date of Service December 30, 2020 Assessment & Plan (1) Neurogenic claudication due to lumbar spinal stenosis: Admission and Anticipated Discharge Date Admission Date: December 29, 2020 This point we will continue physical therapy monitor her LANCE output anticipate discharge home in the next few days. Subjective Back pain is controlled leg symptoms markedly improved. Physical Exam Physical Exam: Patient is in the chair at bedside. She has good strength testing. She appears comfortable. Results & Data ([facility]) Vital Signs (Past 12 Hours) Vital Signs Temp Pulse Resp BP Pulse Ox 12/30/20 11:25 36.4 C L 59 L 16 121/72 98 12/30/20 07:45 36.5 C 69 16 108/74 95 12/30/20 02:47 36.7 C 73 16 95/63 L 95
[2020-12-30] MEDS: POLYETHYLENE (MIRALAX) 17 GM PACK PO SCH ×3 (13:02→22:52)
[2020-12-30] MEDS ORDERED: POLYETHYLENE (MIRALAX) 17 GM PACK PO SCH (14:57)
[2020-12-30] MEDS: NICOTINE 7 MG/24 HR TDSY TD SCH (18:15)
[2020-12-30] MEDS: SIMVASTATIN 20 MG TAB PO SCH (20:22)
[2020-12-30] MEDS: DOCUSATE SODIUM/SENNA 50/8.6MG TAB PO SCH (20:22)
[2020-12-30] MEDS: PANTOprazole 40 MG TAB PO SCH (20:23)
[2020-12-31] MEDS: oxyCODONE HCL IR 5 MG TAB (IMMEDIATE RELEASE) PO PRN ×3 (01:30→14:51)
[2020-12-31] MEDS: POLYETHYLENE (MIRALAX) 17 GM PACK PO SCH ×2 (06:30→12:41)
[2020-12-31] MEDS: FLUoxetine HCL 20 MG CAP PO SCH (08:27)
[2020-12-31] MEDS: SPIRONOLACTONE 100 MG TAB PO SCH (08:27)
[2020-12-31] MEDS: buPROPion SR 100 MG TABCR PO SCH (08:27)
[2020-12-31] MEDS: ASCORBIC ACID 500 MG TAB PO SCH (08:27)
[2020-12-31] MEDS: FLUTICASONE PROPIONATE NA SPR 16 GM BTL SCH (08:28)
[2020-12-31] MEDS: Scopolamine CHECK PATCH PLACEMENT SCH ×2 (08:28→14:50)
[2020-12-31] MEDS: NICOTINE 7 MG/24 HR TDSY TD SCH (08:29)
[2020-12-31] MEDS: ACETAMINOPHEN 500 MG TAB PO PRN (08:30)
[2020-12-31] MEDS ORDERED: dexAMETHasone 8 MG in SYRINGE 0 ML IV SCH (09:00)
--- NOTE | 2020-12-31 11:59 | Discharge Summary ---
Date of Service December 31, 2020 Admission HPI Per Admitting Provider This is a 55-year-old female who presents with chronic persistent back and leg pain. Failing course of nonoperative care is here for surgical invention. Principal Diagnosis Lumbar spinal stenosis with neurogenic claudication Discharge Data Allergies Allergy/AdvReac Type Severity Reaction Status Date / Time No Known Drug Allergies Allergy Unknown , Verified 12/29/20 10:41 Dust Mite Extract Allergy Intermediate dust/dirt- Uncoded 12/29/20 10:41 coughing, sneezing Consultations 12/29/20 17:06 Consult Case Management - Discharge Planning Routine Consult Hospitalist Routine Procedures Performed Operation Date: 11/17/20 07:45 <No data on this case meets the specified criteria> Operation Date: 12/29/20 11:55 Actual Procedures p L2-L4 Decompression Fusion, Interbody at L3-L4, Spinal Cord Monitoring(Not Applicable) - Candelario Gonzalez DO s L4-L5 Hardware Removal(Not Applicable) - Candelario Gonzalez DO Ordered Studies 12/29/20 11:55 FL fluoroscopy <1hr Routine FL lumbar spine 2-3V Routine Hospital Course (1) Neurogenic claudication due to lumbar spinal stenosis: Patient went lumbar decompression fusion tolerated well taken to orthop edic floor postoperative. Postop day 1 she was up and ambulating progressed to postop day #2. Back pain controlled. Leg pain markedly improved. Excellent strength testing. LANCE drain decreasing appropriately. Subsequently discharged home. Discharge orders instructions from the chart for further review. Total Time Total Time Spent Total Time Spent (In Minutes): 20 minutes Discharge Plan Discharge Items Patient Disposition: Home - Self-Care Reason For Visit: Spinal Stenosis,Lumbar region w/neurogenic claudic Discharge Diagnosis: Lumbar spinal stenosis with neurogenic claudication Activity: As commented below Non-emergency contact: Primary Care Provider Call non-emergency contact if: you have any medication questions Follow-up/Referrals: Saeed Morris MD [Primary Care Provider] - Diet: Regular Addtl Attending Provider Instructions: ACTIVITY RECOMMENDATIONS: SELF CARE INSTRUCTIONS AFTER THORACIC/LUMBAR FUSIONS 1. You may walk to your tolerance. It is good exercise for your legs and back. Expect some back and intermittent leg aches and pains. 2. You may perform "counter-top" level activities (make a sandwich, gaudencio with a project, etc.). 3. No bending or lifting of more than 10 pounds or back twisting of any nature (roll like a log when turning in bed). 4. You may ride in a car for 20-30 minutes at a time. No driving until after your first visit with your doctor. 5. Frequent changes of position and restricting sitting to 30 minutes at a time will help limit the amount of back spasms and stiffness you may experience. 6. You may discontinue the use of ambulatory aids (cane, crutches, etc.) once your strength and confidence allow. 7. You may casino supervisor the shower and let water strike your incision when you arrive home at least once daily. Do not take a tub bath, sit in a hot tub or go into a swimming pool until after your first recheck in the office. SPECIAL CARE INSTRUCTIONS: VERY IMPORTANT TO READ AND REVIEW A. Your surgical incision has been closed with a cosmetic suture under the skin that will dissolve in about 6 weeks. In 14 days, you can use a pair of clean scissors and cut the suture that is left outside of the skin at the ends of your incision. 1. The small skin tapes can be removed 7 days after surgery if they have not fallen off by that point. 2. You may keep the wound open to air as much as possible to promote healing after post-op day number 5 unless told otherwise by your doctor. 3. If you think the wound looks like it is becoming infected (redness or worsening drainage) and/or you are experiencing fever, chill or worsening back pain and muscle spasms, contact the office so that we may evaluate you as soon as possible. B. Complications are uncommon, but please contact us if you have any signs or symptoms of: 1. wound infection (fever higher than 102.5 degrees F, redness, separation of wound, drainage, or increasing pain from the incision) 2. blood clots in legs (pain, swelling, redness and warmth in legs) 3. urinary tract infection (fever higher than 102.5 degrees F, burning upon urination or increased frequency of urination) 4. nerve problems (inability to walk on your toes or heels, numbness, loss of bowel or bladder control) 5. any other symptoms that concern you C. Please call the office at if you have any concerns or questions about your operation or recovery. D. No smoking! Smoking drastically decreases the chance of a solid fusion. E. Do not take any anti-inflammatory medications (Indocin, Advil, Motrin, Aspirin, Naprosyn, etc.) as these may inhibit the chance of a solid fusion. Tylenol is okay to take for pain. MANAGING PAIN AFTER SPINAL SURGERY 1. Narcotic medication is intended for short-term use and will be provided for surgical pain. Surgical pain usually lasts for a period of 4-6 weeks. Narcotic medication includes Percocet, Vicodin, Darvocet, Tylenol #3 or Lortab. 2. Longer-term pain is more appropriately treated with non-narcotic medication such as Tylenol ES. 3. Muscle spasm is not appropriately treated with narcotics. Muscle relaxers such as Soma, Flexeril or Skelaxin can be used along with Tylenol ES. 4. Remember that we all live with some "aches and pains". This is not unusual or uncommon after an injury or as we get older. a. Back pain is expected and may include muscle spasms for 4 to 6 weeks after surgery. The pain should gradually improve. If the pain worsens for no apparent reason, please contact the office. b. Intermittent leg pain may also be experienced and should not be concerned about unless it worsens for no apparent reason. If so, please contact the office. 5. We will provide appropriate medication within the normal guidelines of their prescribed use. We will also be very cautious and aware of potential abuse and extended duration of patients' medication needs. a. Pain medications are for your comfort and to assist with sleep and rest so that the tissue can heal. They are not provided in order to return to normal activity and should not be used through the day. To do so or worsening pain at night can result from ongoing tissue damage and development of tolerance to the prescribed medicine. 6. Please allow 2-3 days to process refills. Prescriptions will not be mailed but must be picked up at the office. FOLLOW UP VISIT: Keep your scheduled follow-up appointment. Any questions, please call the office at . Pending Studies at Discharge: No Stand-Alone Forms: [employer], Smoking Cessation Medications and DC Order Prescriptions: New tramadol 50 mg tablet 50 mg PO Q6H PRN (Reason: pain, moderate) Qty: 30 RF: 0 oxycodone 5 mg tablet 5 mg PO Q6H PRN (Reason: pain, severe) Qty: 30 RF: 0 Continued spironolactone 100 mg tablet 100 mg PO QAM Qty: 30 RF: 2 omeprazole 20 mg capsule,delayed release(DR/EC) 20 mg PO QPM RF: 0 fluoxetine [Prozac] 20 mg capsule 20 mg PO BID RF: 0 bupropion HCl [Wellbutrin SR] 100 mg tablet sustained-release 12 hr 100 mg PO BID RF: 0 ascorbic acid (vitamin C) 500 mg tablet 500 mg PO BID Qty: 1 RF: 0 bismuth subsalicylate [Pepto-Bismol] 262 mg Tablet,Chewable 1 - 2 tab PO QID PRN (Reason: Nausea) RF: 0 Epidiolex 100 mg/mL Solution 100 mg PO DAILY PRN (Reason: Pain) RF: 0 celecoxib 200 mg capsule 200 mg PO QAM RF: 0 simvastatin 20 mg tablet 20 mg PO QPM RF: 0 fluticasone propionate 50 mcg/actuation spray,suspension 2 sprays intranasal QAM RF: 0 nicotine 7 mg/24 hr Patch 24 Hour 1 patch TRANSDERMAL DAILY RF: 0 turmeric root extract 500 mg Capsule 500 mg PO BID RF: 0 K2 Mk7 100 mg PO QAM RF: 0 lorazepam 0.5 mg Tablet 0.5 mg PO BID PRN (Reason: Anxiety) RF: 0 Discharge Orders: Discharge Order (Routine); Ordered 12/31/20 Ordered By: Candelario Gonzalez Admission Data Admit Date/Time: 12/29/20 15:52 Attending Provider: Candelario Gonzalez Admit Provider: Candelario Gonzalez Primary Care Provider: Saeed Morris Other Providers: Baljinder Vargas ; [place]
[2020-12-31] MEDS ORDERED: bisacodyL 10 MG SUPP PR PRN (14:57)
== END 2020-12-31 16:15 | disposition home health service (06) | DRG 455 ==
LOC: ASU 10:23 → 3E 15:52